=== PATIENT | male | born 1955 | race Caucasian/White ===

== ENCOUNTER 2021-06-22 10:49 | Inpatient (IN) ==
[2021-06-22] MEDS ORDERED: MIDAZOLAM HCL 5 MG/ML 1 ML VIAL ONE (11:40)
[2021-06-22] MEDS ORDERED: fentaNYL citrate 100 MCG/2 ML VIAL ONE (11:40)
--- NOTE | 2021-06-22 11:53 | History & Physical Bridge Note ---
Date of Service June 22, 2021 History & Physical Bridge Note I have examined the patient, reviewed the History & Physical and in the interval since the performance of the History & Physical I have noted the following changes of clinical significance: no changes noted
--- NOTE | 2021-06-22 11:54 | Pre Anesthesia Assessment ---
Date of Service June 22, 2021 Pre Sedation Assessment Vital Signs Temp Pulse Pulse Resp BP Pulse Ox 06/22/21 11:30 83 18 119/88 97 06/22/21 11:11 36.8 C 88 18 110/86 96 Pre-Sedation Airway Assessment Smoking Status: Current every day smoker Hx Sleep Apnea: No Short, Thick Neck: No Thyromental Distance: < 3.5 Finger Breadths Oral Cavity: + Dentures Mallampati Class: II ASA: ASA3 NPO Status Date of Last Intake of Fluids: 06/21/21 Time of Last Intake of Fluids: 21:30 Date of Last Intake of Solid Food: 06/21/21 Time of Last Intake of Solid Foods: 17:45 Notes The planned sedation has been discussed with the patient. Informed Consent was obtained. I have identified the patient, determined the appropriateness of sedation and have assessed the patient immediately prior to the procedure. All medicine(s) and interventions are by my order.
--- NOTE | 2021-06-22 12:19 | Post Anesthesia Assessment ---
Date of Service June 22, 2021 Post Sedation Assessment Vital Signs Temp Pulse Pulse Resp BP Pulse Ox 06/22/21 12:13 92 H 20 105/79 99 06/22/21 12:08 111 H 22 129/94 93 06/22/21 12:05 84 16 110/72 100 06/22/21 12:00 85 16 92/75 L 100 06/22/21 11:55 85 16 92/75 L 100 06/22/21 11:50 83 18 107/81 100 06/22/21 11:30 83 18 119/88 97 06/22/21 11:11 36.8 C 88 18 110/86 96 Recovery Score Activity: Moves 4 extremities Respiration: Deep Breath/Cough Circulation: +/-20% PreAnes Value Consciousness: Arouseable (by name) Oxygen Saturation: O2 needed for >90% Post Anesthesia Score: 8 Discharge Sedation Level of Care: Fast Track Phase II Post Sedation Plan On clinical assessment, the patient appears to have tolerated the sedation without complications. Patient is recovering as anticipated. Patient will continue to be monitored by nursing and may be discharged when sedation discharge criteria are met per below protocol. Upon Completions of procedure up to 15 minutes continue every 5 minute vital signs and the P.A.R. score; then discharge to a Phase I or Fast Track to Phase II per the following guidelines: * Discharge Patient to appropriate Phase II area if PAR is 8 or greater or return to pre- procedure baseline. The post - procedure orders will be as directed. * If PAR score is less than 8 or not return to pre-procedure baseline then patient will follow Phase I monitoring till PAR is reached for Phase II. The Phase I may be done in procedure room or may call to secure a Phase I area. * If naloxone or flumazenil are used for reversal, hold in Phase I for continued monitoring from when last reversal dose was given for a minimum of 60 minutes or longer pending the nurse and/or physician discretion of patient condition before discharge to Phase II. Please call the Sedation Physician to re-evaluate and complete post-note for discharge to Phase II area. Do NOT discharge from procedure sedation or Phase 1 until post- sedation evaluation note is complete by procedure /sedation MD Sedation Discharge Instructions to be given to the patient at discharge to home.
--- NOTE | 2021-06-22 13:24 | Procedure Note ---
Procedure Note Date of Service June 22, 2021 Note Procedure: Fiberoptic bronchoscopy Conscious sedation Provider: dAin Garcia MD Consent: Signed by patient and timeout verified prior to procedure. Sedation start: 1153 Sedation end: 64146 Conscious sedation: 3 mg Versed, 100 mcg fentanyl, topical lidocaine per RT protocol Procedure: Patient was brought to the bronchoscopy suite. Consent was verified. Appropriate radiographic studies had been reviewed prior to the procedure. Standard monitoring was applied. Oxygen was administered. After topical anesthesia of the airways per respiratory therapy protocol, the fiberoptic scope was advanced through the right nares. Nasopharynx and oropharynx was unremarkable. At the level of the epiglottis, there was a polypoid friable mass which obscured most of the normal anatomy. I was able to find a small lumen to navigate the bronchoscope through the lumen. We were able to visualize vocal cords on the distal aspect of the mass. The scope was passed through the vocal cords. The trachea was midline. Main ran was sharp. There were no abnormalities within the trachea to correspond to the abnormalities identified on CT scan and this likely represented adherent mucus. Anesthesia of the lower airways was achieved with instillation of lidocaine through the scope. A sequential and systematic examination of the lower airways was conducted. The right-sided airways were normal in anatomic configuration and patent and the mucosa appeared normal. Left-sided airways were normal in anatomic configuration and widely patentand the mucosa appeared normal. The bronchoscope was then removed from the airways. The patient tolerated the procedure well without obvious complication. Patient was returned to the recovery room. Impression: 1. 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 See p rhea in EMR 2. No evidence of tracheal abnormality. The described radiographic abnormalities on CT scan likely represented mucus adherent to the tracheal granda The images were reviewed with Dr. Houston (ENT) and Dr. Chester (Anesthesia). It was recommended that the patient have his airway secured with a tracheostomy. He is being put on the OR schedule for later today. This was discussed with the patient. We will have medicine admit the patient. He will likely require medical oncology and or radiation oncology depending on pathological findings. Coding CPT Codes Sedation/Anesthesia - Sedation/Anesthesia: 39452 Mod Sedation by the same physician;Init15 Min Child Age 5 & Up ([id number]) Sedation/Anesthesia - Sedation/Anesthesia: 16493 Mod Sedation by the same physician; Ea [id number] Minutes ([id number]) Pulmonary/Thoracic - Pulmonary and Thoracic: 02850 Dx bronchoscopy/wash ([id number]) [facility] [place] Procedure Codes (Charges) Pulmonary/Thoracic Procedure 1: Pulmonary and Thoracic: 98758 Dx bronchoscopy/wash Sedation/Anesthesia Procedure 2: Sedation/Anesthesia: 51467 Mod Sedation by the same physician;Init15 Min Child Age 5 & Up Total Sedation Time (minutes): 23 Procedure 3: Sedation/Anesthesia: 25573 Mod Sedation by the same physician; Ea [id number] Minutes Total Sedation Time (minutes): 23
--- NOTE | 2021-06-22 13:24 | History & Physical Report ---
Date of Service June 22, 2021 Assessment & Plan (1) Tracheal mass: Plan: Due to the noted tracheal mass the pulmonary service feels the patient requires admission to the hospital due to concern for airway compromise. We will proceed as follows: Pulmonary service feels an urgent tracheostomy is required. This procedure is planned for later today We will follow for results of pathology from today's bronchoscopy. Additional recommendations be forthcoming and will be based on pathology results as well as patient's postoperative course following his tracheostomy. History of Present Illness Chief Complaint: Tracheal mass Primary Care Provider: Blanca Pabon, DO This 65-year-old male who underwent a bronchoscopy today by the pulmonary service. The patient was found to have a tracheal mass. Due to location of the patient's trachea masses felt the patient will warrant an urgent tracheostomy and subsequent admission to the hospital and we are asked to participate in his care for this reason. I visited with the patient following his bronchoscopy. The patient notes that back in November 2020 he developed hoarseness. In addition the patient developed a DVT. Patient has been placed on blood thinners and he has undergone a series of the diagnostic evaluations secondary to his hoarseness. With his current presentation the patient says that he does not note any worsening shortness of breath even with activity. He notes that he has been able to maintain his usual level of activity performing various tasks around his house and yard work. He denies any chest pain. He denies any fevers, shakes, chills. He denies any known exposures to any chemicals, pesticides, or asbestos. Patient does report an extensive history of smoking having smoked for in excess of 30 years up to 1.5 to 2 pack cigarettes per day. He is a current smoker. Patient says that he consumes approximately 1 alcoholic beverage per day but is not a heavy drinker and has not been a heavy drinker in the past. In addition the patient does report losing between 50 and 60 pounds unintentionally over the past year. He denies any dysphagia. He denies any decreased appetite. Since the patient's hoarseness began he has seen his family physician. He has been anticoagulated secondary to his history of DVT. Patient has undergone a colonoscopy in February of this year at which time polyps were removed. There is no available pathology from this procedure.Patient has undergone a CT scan of the chest on November 5 of this year. This showed several small pulmonary nodules not exceeding 3 mm in size. Patient was noted to have some right lobe thyroid enlargement. There were questionable 6 mm nodules along the right lat eral wall of the trachea. It is a CT scan that prompted pulmonary evaluation. Was initially felt that the thyroid lesions in question represented mucus which would be better evaluated by bronchoscopy which he underwent today. In addition to the above-noted studies the patient is also undergone a thyroid ultrasound on May 26 of this year which showed an enlarged multinodular goiter in both lobes of the thyroid. At the present time the patient says he is not short of breath. He denies any chest pain. He denies any fevers, shakes, chills. He denies any nausea or vomiting. He does report that he continues to have a hoarse voice but otherwise feels okay. At the time of my interview he was resting comfortably in bed. He was in no distress. Allergies Allergy/AdvReac Type Severity Reaction Status Date / Time No Known Drug Allergies Allergy Verified 06/14/21 08:32 Home Medications Medication Instructions Recorded Confirmed Type hydrocortisone 2.5 % topical cream 1 applic KS DAILY PRN #30 g 02/15/21 06/22/21 Rx with perineal applicator apixaban 5 mg tablet (Eliquis) 5 mg PO BID #180 tab 03/18/21 06/22/21 Rx atorvastatin 20 mg tablet (Lipitor) 20 mg PO QPM #90 tab 04/28/21 06/22/21 Rx ipratropium 20 mcg-albuterol 100 1 puff INHALATION Q4H PRN #4 g 06/14/21 06/22/21 Rx mcg/actuation mist for inhalation (Combivent Respimat) Past Med/Surg History Medical History Emphysema/COPD History of DVT (deep vein thrombosis) RLE; November 2020; unk etiology; on eliquis HLD (hyperlipidemia) IBS (irritable bowel syndrome) Osteoarthritis Smoker Tracheal mass Unintentional weight loss reports 40 lb wt loss over 7 mo Surgical History History of ankle surgery (12/2019) Left, d/t fx History of colonoscopy History of esophagogastroduodenoscopy (EGD) S/P tonsillectomy Family History Aunt Myocardial infarction Uncle Myocardial infarction Father Alcohol abuse Mother , complications No problems noted. Other Diabetes No family history of adverse response to anesthesia Denies family history of Ovarian cancer Prostate cancer Breast cancer Colorectal cancer Social History Smoking Status: Current every day smoker Tobacco Type: Cigarettes Age Started Using Tobacco: 21; packs per day: 1; Years Smoked: 40; Cigarettes Per Day: 1 ppd; Second Hand Exposure: No; Hx Alcohol Use: Yes Alcohol type: hard liquor Alcohol Intake Frequency: 2-3 x/Week Alcohol Intake Frequency Comment: weekends Hx Substance Use: No Preferred Language: [place] Communication Ability: Effective Visual Impairment: No Limitations Hearing Ability: Normal Ic Design Engineer Required: No Beliefs That Will Affect Care: None marital status: marital status details: x 2 Current Living Situation: Alone Current Living Situation Comment: lives w/ dog current occupational status: employed current occupation: [employer] How many Children do You have: 2 Feels Safe at Home: Yes Childhood Exposure to Second-Hand Smoke: No caffeine: Yes (coffee) during the past year weight has: remained stable Dental Care, Regularly: No Physical Activity Frequency: Does not Exercise Seatbelt Use: always Sunscreen Use: No Assistive Devices: Denture - Upper, Denture - Lower and Glasses Review of Systems Constitutional: as per Subjective / HPI and + weight loss; no fever, no chills and no fatigue Eyes: no diplopia Ear, Nose, Mouth, Throat: + hoarseness; no ear pain, no tinnitus and no dysphagia Respiratory: no cough and no dyspnea Cardiovascular: no chest pain Gastrointestinal: no abdominal pain, no nausea, no vomiting and no change in bowel habits Genitourinary: no dysuria Musculoskeletal: no back pain Integumentary: no rash Neurologic: no localized weakness Physical Exam Constitutional: well developed and well nourished; no acute distress Eyes: no conjunctival abnormality ENMT: Ears: no hearing impairment and no external ear abnormality Audible hoarseness noted with phonation Neck: trachea midline Respiratory: normal respiratory effort, lungs clear to auscultation No stridor noted Cardiovascular: Rate/Rhythm: regular rate and regular rhythm Gastrointestinal (Abdomen): Soft and nontender Musculoskeletal: No calf tenderness Skin: no rashes, warm and dry Neurologic: moves all extremities Psychiatric: A+Ox3, euthymic affect Results & Data Results & Data ([facility]) Vital Signs (Past 12 Hours) Vital Signs Temp Pulse Pulse Resp BP Pulse Ox 06/22/21 13:00 36.7 C 87 18 136/95 99 06/22/21 12:45 36.8 C 90 18 97/79 L 98 06/22/21 12:30 36.8 C 90 18 117/78 98 06/22/21 12:15 36.8 C 90 18 108/88 99 06/22/21 12:13 92 H 20 105/79 99 06/22/21 12:08 111 H 22 129/94 93 06/22/21 12:05 84 16 110/72 100 06/22/21 12:00 85 16 92/75 L 100 06/22/21 11:55 85 16 92/75 L 100 06/22/21 11:50 83 18 107/81 100 06/22/21 11:30 83 18 119/88 97 06/22/21 11:11 36.8 C 88 18 110/86 96 Supervising Physician Co-Signing Physician Notes I personally saw and examined the patient. I verified all duran points and agree with Fer Elias PA-C with the following exceptions and/or additions: 65 year old male admission s/p bronchoscopy due to need for emergency tracheostomy due to large supraglottic mass. Patient denies any prior CVA or OR. He usually has good exercise tolerance and reports walking a mild without any shortness of breath or chest pain O/E No stridor, HS 1+2, no murmurs, Chest CTAB, Abdo SNT A/P Supraglottic mass - Patient will be admitted to the ICU post surgery. Consult ICU and ENT. Prior unprovoked DVT - suspect related to current finding of supraglottic mass. Currently will hold anticoagulation due to need for emergency tracheostomy PG Care Time/CCT Total # of Minutes Spent Total Time Spent with Patient: Total time spent is greater than 50% in coordination of care (as documented) at patient's floor/unit and/or counseling patient: Coding Level of Care Code 35861 Initial Inpt Care Lvl 3 Diagnoses Tracheal mass J39.8
[2021-06-22] MEDS ORDERED: LIDOCAINE 2% LOCAL 50 ML VIAL ONE (13:55)
[2021-06-22] MEDS ORDERED: LIDOCAINE 2%/EPINEPHRINE 1:100,000 20ML ONE ×2 (13:55→15:37)
--- NOTE | 2021-06-22 14:12 | Critical Care Consultation ---
Date of Consultation June 22, 2021 Assessment & Plan (1) Supraglottic mass: (2) Pulmonary nodule: (3) Smoker: (4) Unintentional weight loss: Impression: 65-year-old male with progressive history of hoarseness, unprovoked DVT, and weight loss. He underwent bronchoscopy today for evaluation of questionable tracheal lesions. There were no lesions in the trachea however a supraglottic mass was identified with significant airway compromise with findings highly concerning for malignancy Recommendations: 1. Supraglottic mass: Case was discussed and images were reviewed with Dr. HOUSTON from ENT. He recommended securing the patient's airway sooner rather than later and is coming to the hospital to perform tracheostomy. Case was reviewed and images reviewed with Dr. Donald from anesthesia as well. They are contemplating tracheostomy under local anesthesia. I did advise them that I was able to enter the airway although it was somewhat tortuous. He was able to lie supine. He did tolerate sedation in the form of 3 mg Versed and 100 mcg fentanyl for the procedure. Otolaryngology will also perform biopsies of the supraglottic lesion at that point time. Its likely the patient will require medical oncology and radiation oncology outpatient follow-up. Additional staging procedures may be required. He will be observed post trach in the hospital but anticipate that he should do well. Will need case management and potential home health set up for trach management. Unclear what additional staging procedures might need to be conducted for this patient. 2. Unprovoked DVT: The patient is currently off his Eliquis. Would hold anticoagulation based on his need for additional surgical procedures. This can be restarted once felt to be stable from a surgical standpoint. 3. Tobacco abuse: Smoking cessation was recommended. 4. Anticipate the patient may not require prolonged hospitalization and probably will not require prolonged ICU level care. 5. Pulmonary nodules: These are too small to biopsy or to differentiate on any additional scanning. Radiographic surveillance with a follow-up CT scan recommended in 12 months. Additional management issues per the admitting hospitalist. Will sign off once the patient no longer requires ICU level care History of Present Illness Attending Physician: Adin Garcia MD History of Present Illness Asked by hospitalist to evaluate this patient with supraglottic mass and near airway obstruction. Patient is known to me from pulmonary clinic. Please see my outpatient pulmonary notes and bronchoscopy note for today. This 65-year-old male was referred to me in the pulmonary clinic last month. He has a history of tobacco abuse and developed an unprovoked DVT. Hypercoagulable work-up was negative. Lung cancer screening was recommended which was performed and demonstrated several small less than 4 mm pulmonary nodules. There were some small densities within the trachea, likely adherent mucus but this prompted a pulmonary evaluation. Options were discussed with the patient to include serial observation versus bronchoscopy. The patient elected to pursue bronchoscopy. He was seen today in the outpatient setting for elective fiberoptic bronchoscopy to evaluate this tracheal nodules. The patient does complain of unintentional weight loss. He is also had hoarseness which has been progressive over the last 6 months. He is not had any swallowing difficulties or aspiration events. No fevers chills night sweats or other constitutional symptoms. Allergies Allergy/AdvReac Type Severity Reaction Status Date / Time No Known Drug Allergies Allergy Verified 06/14/21 08:32 Home Medications Medication Instructions Recorded Confirmed Type hydrocortisone 2.5 % topical cream [address] DAILY PRN #30 g 02/15/21 06/22/21 Rx with perineal applicator apixaban 5 mg tablet (Eliquis) 5 mg PO BID #180 tab 03/18/21 06/22/21 Rx atorvastatin 20 mg tablet (Lipitor) 20 mg PO QPM #90 tab 04/28/21 06/22/21 Rx ipratropium 20 mcg-albuterol 100 1 puff INHALATION Q4H PRN #4 g 06/14/21 06/22/21 Rx mcg/actuation mist for inhalation (Combivent Respimat) Patient History Medical History (Updated 06/22/21 @ 14:07 by Adin Garcia MD) Emphysema/COPD History of DVT (deep vein thrombosis) RLE; November 2020; unk etiology; on eliquis HLD (hyperlipidemia) IBS (irritable bowel syndrome) Osteoarthritis Smoker Tracheal mass Unintentional weight loss reports 40 lb wt loss over 7 mo Surgical History History of ankle surgery (12/2019) Left, d/t fx History of colonoscopy History of esophagogastroduodenoscopy (EGD) S/P tonsillectomy Family History Aunt Myocardial infarction Uncle Myocardial infarction Father Alcohol abuse Mother , complications No problems noted. Other Diabetes No family history of adverse response to anesthesia Denies family history of Ovarian cancer Prostate cancer Breast cancer Colorectal cancer Social History Smoking Status: Current every day smoker Tobacco Type: Cigarettes Age Started Using Tobacco: 21; packs per day: 1; Years Smoked: 40; Cigarettes Per Day: 1 ppd; Second Hand Exposure: No; Hx Alcohol Use: Yes Alcohol type: hard liquor Alcohol Intake Frequency: 2-3 x/Week Alcohol Intake Frequency Comment: weekends Hx Substance Use: No Preferred Language: Norwegian Communication Ability: Effective Visual Impairment: No Limitations Hearing Ability: Normal [employer] 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 Beliefs That Will Affect Care: None marital status: marital status details: x 2 Current Living Situation: Alone Current Living Situation Comment: lives w/ dog current occupational status: employed current occupation: [employer] How many Children do You have: 2 Feels Safe at Home: Yes Childhood Exposure to Second-Hand Smoke: No caffeine: Yes (coffee) during the past year weight has: remained stable Dental Care, Regularly: No Physical Activity Frequency: Does not Exercise Seatbelt Use: always Sunscreen Use: No Assistive Devices: Denture - Upper and Denture - Lower Review of Systems Review of Systems: All systems reviewed & are unremarkable except as noted in HPI & below Physical Exam Constitutional: WD/WN, vitals as above ENMT: Patient is hoarse. Neck: trachea midline, no thyromegaly Respiratory: normal respiratory effort, lungs clear to auscultation Cardiovascular: RRR, no murmur, no edema Gastrointestinal (Abdomen): normal bowel sounds, soft, nontender, no hepatosplenomegaly Musculoskeletal: Extremities: extremities normal to inspection Skin: no rashes, warm and dry Neurologic: Nonfocal exam Lymphatic: no cervical lymphadenopathy Results & Data Results & Data ([facility]) Vital Signs (Past 12 Hours) Vital Signs Temp Pulse Pulse Resp BP Pulse Ox 06/22/21 13:45 36.7 C 91 H 20 123/84 97 06/22/21 13:30 36.7 C 92 H 20 115/75 98 06/22/21 13:00 36.7 C 87 18 136/95 99 06/22/21 12:45 36.8 C 90 18 97/79 L 98 06/22/21 12:30 36.8 C 90 18 117/78 98 06/22/21 12:15 36.8 C 90 18 108/88 99 06/22/21 12:13 92 H 20 105/79 99 06/22/21 12:08 111 H 22 129/94 93 06/22/21 12:05 84 16 110/72 100 06/22/21 12:00 85 16 92/75 L 100 06/22/21 11:55 85 16 92/75 L 100 06/22/21 11:50 83 18 107/81 100 06/22/21 11:30 83 18 119/88 97 06/22/21 11:11 36.8 C 88 18 110/86 96 Critical Care Results & Data Vital Signs (Past 12 Hours) Vital Signs Temp Pulse Pulse Resp BP Pulse Ox 06/22/21 13:45 36.7 C 91 H 20 123/84 97 06/22/21 13:30 36.7 C 92 H 20 115/75 98 06/22/21 13:00 36.7 C 87 18 136/95 99 06/22/21 12:45 36.8 C 90 18 97/79 L 98 06/22/21 12:30 36.8 C 90 18 117/78 98 06/22/21 12:15 36.8 C 90 18 108/88 99 06/22/21 12:13 92 H 20 105/79 99 06/22/21 12:08 111 H 22 129/94 93 06/22/21 12:05 84 16 110/72 100 06/22/21 12:00 85 16 92/75 L 100 06/22/21 11:55 85 16 92/75 L 100 06/22/21 11:50 83 18 107/81 100 06/22/21 11:30 83 18 119/88 97 06/22/21 11:11 36.8 C 88 18 110/86 96 Lab & Micro Results (Past 24 Hours) No Data to Display No Data to Display No Data to Display Diagnostic Findings (Past 24 Hours) Bronchoscopy procedure note from today: Procedure: Fiberoptic bronchoscopy Conscious sedation Provider: Adin Garcia MD Consent: Signed by patient and timeout verified prior to procedure. Sedation start: 1153 Sedation end: 72556 Conscious sedation: 3 mg Versed, 100 mcg fentanyl, topical lidocaine per RT protocol Procedure: Patient was brought to the bronchoscopy suite. Consent was verified. Appropriate radiographic studies had been reviewed prior to the procedure. Standard monitoring was applied. Oxygen was administered. After topical anesthesia of the airways per respiratory therapy protocol, the fiberoptic scope was advanced through the right nares. Nasopharynx and oropharynx was unremarkable. At the level of the epiglottis, there was a polypoid friable mass which obscured most of the normal anatomy. I was able to find a small lumen to navigate the bronchoscope through the lumen. We were able to visualize vocal cords on the distal aspect of the mass. The scope was passed through the vocal cords. The trachea was midline. Main ran was sharp. There were no abnormalities within the trachea to correspond to the abnormalities identified on CT scan and this likely represented adherent mucus. Anesthesia of the lower airways was achieved with instillation of lidocaine through the scope. A sequential and systematic examination of the lower airways was conducted. The right-sided airways were normal in anatomic configuration and patent and the mucosa appeared normal. Left-sided airways were normal in anatomic configuration and widely patentand the mucosa appeared normal. The bronchoscope was then removed from the airways. The patient tolerated the procedure well without obvious complication. Patient was returned to the recovery room. Impression: 1. 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 See photos in EMR 2. No evidence of tracheal abnormality. The described radiographic abnormalities on CT scan likely represented mucus adherent to the tracheal granda The images were reviewed with Dr. Houston (ENT) and Dr. Chester (Anesthesia). It was recommended that the patient have his airway secured with a tracheostomy. He is being put on the OR schedule for later today. This was discussed with the patient. We will have medicine admit the patient. He will likely require medical oncology and or radiation oncology depending on pathological findings. RT Ventilator Mngmt (Last Documented) Ventilator Ordered Settings Respiratory Rate 20 06/22/21 13:45 Ventilator - PT Measurements Respiratory Rate 20 Coding Level of Care Code 90897 Inpt Consult Level 5 Diagnoses Supraglottic mass J38.7 Pulmonary nodule R91.1 Smoker F17.200 Unintentional weight loss R63.4
--- NOTE | 2021-06-22 14:15 | XRay Report ---
XR chest 1V portable CLINICAL HISTORY: pre-op. Evaluate cardiopulmonary status COMPARISON STUDY: No previous studies for comparison. TECHNIQUE: 1 view of the chest FINDINGS: Single frontal view of the chest demonstrates the cardiomediastinal silhouette to be within normal li mits. There is a decreased inspiratory effort with elevation of the hemidiaphragms and crowding of th e bronchovascular markings at the lung bases and centrally. The lungs are clear of alveolar opacities . There is no evidence for pleural effusion. There is no evidence for vascular congestion. There is n o acute osseous pathology. IMPRESSION: There is a decreased inspiratory effort with otherwise no acute chest disease. ACT 112: Negative or not required by law. Electronically signed by: Shilo Delaney M.D. 06/22/2021 2:13 PM
[2021-06-22 14:37] LABS: Basophils # (auto) 0.05 K/uL (0-0.2); Basophils % (auto) 0.5 %; Eosinophils # (auto) 0.22 K/uL (0-0.5); Eosinophils % (auto) 2.3 %; Hematocrit (blood only) 40.7 % (42-52); Hemoglobin 13.4 g/dL (14.0-18.0); Immature Granulocytes # (auto) 0.02 K/uL (0.00-0.02); Immature Granulocytes % (auto) 0.2 %; Lymphocytes # (auto) 0.94 K/uL (1.2-3.4); Lymphocytes % (auto) 9.8 %; Mean Corpuscular Hemoglobin 29.8 pg (25-34); Mean Corpuscular Volume 90.6 fL (80-100); Mean Platelet Volume 9.1 fL (7.4-10.4); Monocytes # (auto) 0.89 K/uL (0.11-0.59); Monocytes % (auto) 9.2 %; Neutrophils # (auto) 7.52 K/uL (1.4-6.5); Platelet Count 259 K/uL (130-400); RDW Coefficient of Variation 13.9 % (11.5-14.5); RDW Standard Deviation 45.7 fL (36.4-46.3); Red Blood Count 4.49 M/uL (4.7-6.1); White Blood Count 9.64 K/uL (4.8-10.8)
[2021-06-22 14:39] LABS: Mean Corpuscular Hgb Conc 32.9 g/dL (32-36)
[2021-06-22 14:53] LABS: BUN Creatinine Ratio 18.3 (10-20); Calcium 9.3 mg/dl (8.5-10.1); Creatinine Clr Calc Pharmacy 107.8 ml/min; Est GFR (African American) 111.7 ml/min; Est GFR (Non-African American) 96.4 ml/min
[2021-06-22] MEDS ORDERED: DexMEDEtomidine HCL IV 100 MCG/ML VIAL ONE (14:54)
[2021-06-22 14:56] LABS: Albumin Globulin Ratio 0.7 (0.9-2); Bilirubin,Total 0.5 mg/dl (0.2-1); Globulin 4.1 gm/dl (2.5-4.0); Total Protein 7.1 gm/dl (6.4-8.2)
[2021-06-22] MEDS ORDERED: PROPOFOL IV EMULSION 10 MG/ML 20 ML VIAL IV ONE (14:57)
[2021-06-22] MEDS ORDERED: MIDAZOLAM HCL 1 MG/ML 2ML VIAL ONE (14:57)
[2021-06-22] MEDS ORDERED: LIDOCAINE 2% 2 ML VIAL/AMP(20MG/ML) INFIL ONE (14:57)
[2021-06-22 15:00] LABS: Partial Thromboplastin Ratio 0.9; Partial Thromboplastin Time 24.9 Seconds (21.0-31.0); Prothrombin Time 10.4 Seconds (9.0-12.0)
[2021-06-22] MEDS ORDERED: ceFAZolin 2000MG 2,000 MG/15 ML SYR IV ONE (15:03)
[2021-06-22] MEDS ORDERED: ALBUT/IPRATROP 3MG/0.5MG NEB 3 ML VIAL ONE (15:04)
[2021-06-22] MEDS ORDERED: ceFAZolin 2,000 MG/15 ML IV PUSH IV ONE (15:06)
--- NOTE | 2021-06-22 15:07 | ENT Consultation ---
Date of Consultation June 22, 2021 Assessment & Plan (1) Malignant tumor of suprahyoid epiglottis: Emergency tracheostomy under local followed by panendoscopy and biopsies. History of Present Illness Reason for Consultation: Hoarseness. Attending Physician: Adin Garcia MD History of Present Illness This 65-year-old gentleman was evaluated at the [facility] for hoarseness since November. He was also found to have a thyroid nodule and was being evaluated for that. He had bronchoscopy today which revealed a large epiglottic tumor. He is here for establishment of airway. Allergies Allergy/AdvReac Type Severity Reaction Status Date / Time No Known Drug Allergies Allergy Verified 06/14/21 08:32 Home Medications Medication Instructions Recorded Confirmed Type hydrocortisone 2.5 % topical cream 1 applic [place] DAILY PRN #30 g 02/15/21 06/22/21 Rx with perineal applicator apixaban 5 mg tablet (Eliquis) 5 mg PO BID #180 tab 03/18/21 06/22/21 Rx atorvastatin 20 mg tablet (Lipitor) 20 mg PO QPM #90 tab 04/28/21 06/22/21 Rx ipratropium 20 mcg-albuterol 100 1 puff INHALATION Q4H PRN #4 g 06/14/21 06/22/21 Rx mcg/actuation mist for inhalation (Combivent Respimat) Patient History Medical History Emphysema/COPD History of DVT (deep vein thrombosis) RLE; November 2020; unk etiology; on eliquis HLD (hyperlipidemia) IBS (irritable bowel syndrome) Osteoarthritis Smoker Tracheal mass Unintentional weight loss reports 40 lb wt loss over 7 mo Surgical History History of ankle surgery (12/2019) Left, d/t fx History of colonoscopy History of esophagogastroduodenoscopy (EGD) S/P tonsillectomy Family History Aunt Myocardial infarction Uncle Myocardial infarction Father Alcohol abuse Mother , complications No problems noted. Other Diabetes No family history of adverse response to anesthesia Denies family history of Ovarian cancer Prostate cancer Breast cancer Colorectal cancer Social History Smoking Status: Current every day smoker Tobacco Type: Cigarettes Age Started Using Tobacco: 21; packs per day: 1; Years Smoked: 40; Cigarettes Per Day: 1 ppd; Second Hand Exposure: No; Hx Alcohol Use: Yes Alcohol type: hard liquor Alcohol Intake Frequency: 2-3 x/Week Alcohol Intake Frequency Comment: weekends Hx Substance Use: No Preferred Language: Luxembourgish Communication Ability: Effective Visual Impairment: No Limitations Hearing Ability: Normal 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 Beliefs That Will Affect Care: None marital status: marital status details: x 2 Current Living Situation: Alone Current Living Situation Comment: lives w/ dog current occupational status: employed current occupation: [employer] How many Children do You have: 2 Feels Safe at Home: Yes Childhood Exposure to Second-Hand Smoke: No caffeine: Yes (coffee) during the past year weight has: remained stable Dental Care, Regularly: No Physical Activity Frequency: Does not Exercise Seatbelt Use: always Sunscreen Use: No Assistive Devices: Denture - Upper and Denture - Lower Physical Exam Constitutional: WD/WN, vitals as above Eyes: PERRL, conjunctivae normal, anicteric sclerae ENMT: external ear and nose normal, oropharynx normal Neck: Palpable thyroid right greater than left lobe Respiratory: normal respiratory effort, lungs clear to auscultation Cardiovascular: RRR, no murmur, no edema Results & Data ([facility]) Vital Signs (Past 12 Hours) Vital Signs Temp Pulse Pulse Resp BP Pulse Ox 06/22/21 14:32 36.7 C 81 20 130/90 98 06/22/21 13:45 36.7 C 91 H 20 123/84 97 06/22/21 13:30 36.7 C 92 H 20 115/75 98 06/22/21 13:00 36.7 C 87 18 136/95 99 06/22/21 12:45 36.8 C 90 18 97/79 L 98 06/22/21 12:30 36.8 C 90 18 117/78 98 06/22/21 12:15 36.8 C 90 18 108/88 99 06/22/21 12:13 92 H 20 105/79 99 06/22/21 12:08 111 H 22 129/94 93 06/22/21 12:05 84 16 110/72 100 06/22/21 12:00 85 16 92/75 L 100 06/22/21 11:55 85 16 92/75 L 100 06/22/21 11:50 83 18 107/81 100 06/22/21 11:30 83 18 119/88 97 06/22/21 11:11 36.8 C 88 18 110/86 96
--- NOTE | 2021-06-22 15:10 | Anesthesiology Consultation ---
Date of Service June 22, 2021 Assessment & Plan (1) Encounter for pre-operative examination: Chart Review Chart Review: Acceptable Risk for Surgery and Patient NOT seen in Pre Admission Testing Consults Requested none History Surgery Operation Date: 06/22/21 09:30 Proposed Procedures p Tracheostomy - Bouchra Houston MD Operation Date: 06/22/21 11:00 Proposed Procedures p Bronchoscopy Radiology - Adin Garcia MD Height/Weight Height: 6 ft Weight: 91.1 kg Allergies Allergy/AdvReac Type Severity Reaction Status Date / Time No Known Drug Allergies Allergy Verified 06/14/21 08:32 Medications Home Medications Medication Instructions Recorded Confirmed Last Taken hydrocortisone 2.5 % topical cream 1 applic [place] DAILY PRN #30 g 02/15/21 06/22/21 Unknown with perineal applicator apixaban 5 mg tablet (Eliquis) 5 mg PO BID #180 tab 03/18/21 06/22/21 06/19/21 atorvastatin 20 mg tablet (Lipitor) 20 mg PO QPM #90 tab 04/28/21 06/22/21 Unknown ipratropium 20 mcg-albuterol 100 1 puff INHALATION Q4H PRN #4 g 06/14/21 06/22/21 Unknown mcg/actuation mist for inhalation (Combivent Respimat) NPO Date Last Intake of Fluids: 06/21/21 Time Last Intake of Fluids: 20:30 Date Last Intake of Solids: 06/21/21 Time Last Intake of Solids: 17:45 Past Medical History Medical History Emphysema/COPD History of DVT (deep vein thrombosis) RLE; November 2020; unk etiology; on eliquis HLD (hyperlipidemia) IBS (irritable bowel syndrome) Osteoarthritis Smoker Tracheal mass Unintentional weight loss reports 40 lb wt loss over 7 mo Past Family History Family History Aunt Myocardial infarction Uncle Myocardial infarction Father Alcohol abuse Mother , complications No problems noted. Other Diabetes No family history of adverse response to anesthesia Denies family history of Ovarian cancer Prostate cancer Breast cancer Colorectal cancer Past Surgical History Surgical History History of ankle surgery (12/2019) Left, d/t fx History of colonoscopy History of esophagogastroduodenoscopy (EGD) S/P tonsillectomy Social History Smoking Status: Current every day smoker tobacco type: cigarettes Smoking cigarettes per day: 1 ppd Hx Alcohol Use: Yes Alcohol type: hard liquor alcohol intake frequency: a few times a week Hx Substance Use: No substance use type: does not use Physical Exam Vital Signs Last Vital Signs Temp 36.7 C 06/22/21 14:32 Pulse 81 06/22/21 14:32 Resp 20 06/22/21 14:32 BP 130/90 06/22/21 14:32 Pulse Ox 98 06/22/21 14:32 Testing Laboratory Results 06/22/21 14:15 06/22/21 14:15 PT 10.4 Seconds (9.0-12.0) 06/22/21 14:15 INR 1.0 (0.9-1.1) 06/22/21 14:15 APTT 24.9 Seconds (21.0-31.0) 06/22/21 14:15 Electrocardiogram Date: 06/22/21 Findings: + NSR @ (90) Chest X-Ray Date: 06/22/21 XR chest 1V portable CLINICAL HISTORY: pre-op. Evaluate cardiopulmonary status COMPARISON STUDY: No previous studies for comparison. TECHNIQUE: 1 view of the chest FINDINGS: Single frontal view of the chest demonstrates the cardiomediastinal silhouette to be within normal limits. There is a decreased inspiratory effort with elevation of the hemidiaphragms and crowding of the bronchovascular markings at the lung bases and centrally. The lungs are clear of alveolar opacities. There is no evidence for pleural effusion. There is no evidence for vascular congestion. There is no acute osseous pathology. IMPRESSION: There is a decreased inspiratory effort with otherwise no acute chest disease. ACT 112: Negative or not required by law. Electronically signed by: Shilo Delaney M.D. 06/22/2021 2:13 PM Dictated:06/22/21 141 Transcribed: 06/22/21 141
[2021-06-22] MEDS ORDERED: KETAMINE 50 MG/5 ML SYRINGE ONE (15:34)
[2021-06-22] MEDS ORDERED: EPINEPHrine INJ 1 MG/ML AMP ONE (16:12)
[2021-06-22] MEDS ORDERED: EPINEPHrine HCL INJ 1 MG/ML 30ML ONE (16:13)
[2021-06-22] MEDS ORDERED: ONDANSETRON INJ 2 MG/ML 2 ML VIAL IV PRN (16:15)
[2021-06-22] MEDS ORDERED: LABETALOL HCL IV 5 MG/ML 20ML IV PRN (16:15)
[2021-06-22] MEDS ORDERED: HYDROmorphone INJ 1 MG/ML SYRINGE IV PRN (16:15)
[2021-06-22] MEDS ORDERED: PHENYLEPHRINE 100MCG/ML 5ML SYR IV PRN (16:15)
[2021-06-22] MEDS ORDERED: ePHEDrine sulfate 50 MG/ML AMP IV PRN (16:15)
[2021-06-22] MEDS ORDERED: ATROPINE SULFATE 0.1 MG/ML 10ML SYR IV PRN (16:15)
[2021-06-22] MEDS ORDERED: fentaNYL citrate 100 MCG/2 ML VIAL IV PRN (16:15)
[2021-06-22] MEDS ORDERED: MEPERIDINE HCL 25 MG/ML CARP/VIAL IV PRN (16:15)
--- NOTE | 2021-06-22 16:20 | Electrocardiogram Report ---
Test Reason : Blood Pressure : / mmHG Vent. Rate : 090 BPM Atrial Rate : 090 BPM P-R Int : 140 ms QRS Dur : 090 ms QT Int : 364 ms P-R-T Axes : 054 034 044 degrees QTc Int : 445 ms Normal sinus rhythm Normal ECG No previous ECGs available Confirmed by Yoav Daily ([id number]) on 06/22/2021 4:20:38 PM Referred By: Adin Garcia Confirmed By:Yoav Daily
[2021-06-22] MEDS ORDERED: ROCURONIUM BROMIDE 10 MG/ML 5 ML VIAL IV ONE (16:22)
[2021-06-22] MEDS ORDERED: GLYCOPYRROLATE 0.2 MG/ML VIAL ONE ×2 (16:22→16:23)
[2021-06-22] MEDS ORDERED: NEOSTIGMINE METHYLSULFATE 1 MG/ML 10ML VIAL ONE (16:23)
[2021-06-22] MEDS ORDERED: ONDANSETRON INJ 2 MG/ML 2 ML VIAL ONE (16:25)
[2021-06-22] MEDS ORDERED: ICU PROTOCOL FOR HYPERGLYCEMIA PRN (17:04)
--- NOTE | 2021-06-22 17:11 | Operative Report ---
PG Post Operative Report Pre & Post Diagnosis Operation Date: 06/22/21 09:30 Pre-Op Diagnosis: Epiglottic Tumor Post-Op Diagnosis: Epiglottic Tumor Operation Date: 06/22/21 11:00 Pre-Op Diagnosis: Abnormal CT of the lung Post-Op Diagnosis: Abnormal CT of the lung I identified the patient and participated in the time-out.: Yes Procedure Operation Date: 06/22/21 09:30 Actual Procedures p Tracheostomy, Panendoscopy and Biopsy (Not Applicable) - Bouchra Houston MD Operation Date: 06/22/21 11:00 Actual Procedures p Bronchoscopy Radiology(Bilateral) - Adin Garcia MD Surgeon Bouchra Houston MD Applications Developer Dr. Dent Estimated Blood Loss 20 Findings Consistent with Post-Op Diagnosis Extensive tumor eroding epiglottis extending to the base of tongue and arytenoids. Specimens Biopsies of left true vocal cord, right true vocal cord, left false vocal cord, right false vocal cord, epiglottis, right base of tongue, left base of tongue, right arytenoid, left arytenoid. Anesthesia Type Local Complications None Description of Procedure He was brought to the operating room, placed in the supine position with the neck hyperextended in preparation for tracheostomy. ChloraPrep was used. It was draped in the usual sterile manner. Local anesthesia was attained by injecting with 1% Xylocaine with 1-100,000 strength epinephrine. Incision was 2 cm above the sternal notch in a horizontal fashion. This was carried down through the skin and platysma layer. The subcutaneous fat was then excised using the Bovie down to the strap muscles. Cricoid trachea identified. Midline dissection was performed however the midline was deviated to the left due to the right thyroid mass of 6.2 cm. The thyroid isthmus was encountered and was divided using the hemostat and then suture-ligated with 2-0 silk suture ligature on the right side. The left side had minimal bleeding and was cauterized. This exposed the second and third tracheal rings. Stay suture was placed around the third tracheal ring. This was 2-0 Prolene. Incision was made between the second and third tracheal rings. The vertical incisions each side of the tracheal ring was made using the 15 blade and the Metzenbaum scissors reflecting the tracheal flap inferiorly that the stay suture. The trach mri assistant was used and the #8 Shiley cuffed fenestrated tracheostomy tube was placed. 4 corner stay sutures were placed. At this point general anesthesia was induced using the tracheostomy. He was paralyzed. Direct laryngoscopy was performed showing extensive tumor eroding the epiglottis extending to the base of tongue especially on the right side. The endolarynx was visualized. The vocal cords were visualized. Vocal cords appeared to be uninvolved. However the tumor extends down to the false vocal cords and eroded the arytenoids. Biopsies were taken of the left true vocal cord, right true vocal cord, left false vocal cord, right false vocal cord, epiglottis, right base of tongue, left base of tongue. And then biopsies were taken of the right arytenoid and left arytenoid. Hemostasis had to be controlled using cottonoids with topical epinephrine. He tolerated the procedure well and was taken to the intensive unit in satisfactory condition. I attest to the content of the Intraoperative Record and any orders documented therein. Any exceptions are noted below.
--- NOTE | 2021-06-22 17:43 | Anesthesiology Progress Note ---
Date of Service June 22, 2021 Anesthesia Post Procedure Vital Signs Vital Signs: Temp Pulse Pulse Resp BP BP Pulse Ox 06/22/21 17:35 36.6 C 74 12 106/65 95 06/22/21 17:25 74 13 110/72 96 06/22/21 17:15 82 78 17 126/77 126/77 98 06/22/21 17:05 36.6 C 78 16 105/73 98 06/22/21 14:32 36.7 C 81 20 130/90 98 06/22/21 13:45 36.7 C 91 H 20 123/84 97 06/22/21 13:30 36.7 C 92 H 20 115/75 98 06/22/21 13:00 36.7 C 87 18 136/95 99 06/22/21 12:45 36.8 C 90 18 97/79 L 98 06/22/21 12:30 36.8 C 90 18 117/78 98 06/22/21 12:15 36.8 C 90 18 108/88 99 06/22/21 12:13 92 H 20 105/79 99 06/22/21 12:08 111 H 22 129/94 93 06/22/21 12:05 84 16 110/72 100 06/22/21 12:00 85 16 92/75 L 100 06/22/21 11:55 85 16 92/75 L 100 06/22/21 11:50 83 18 107/81 100 06/22/21 11:30 83 18 119/88 97 06/22/21 11:11 36.8 C 88 18 110/86 96 Transfer of Care Handoff Completed per policy Notes Mental Status: alert / awake / arousable Patient Amnestic to Procedure: Yes Nausea / Vomiting: adequately controlled Pain: adequately controlled Airway Patency, RR, SpO2: stable & adequate BP & HR: stable & adequate Hydration State: stable & adequate Anesthetic Complications: no major complications apparent
[2021-06-22] MEDS ORDERED: IPRATROPIUM BROMIDE NEB SOLN 0.02% 2.5 ML VIAL INH PRN (17:58)
[2021-06-22] MEDS: NORMOSOL-R 1,000 ML IV SCH (18:26)
[2021-06-23 05:38] LABS: Basophils # (auto) 0.06 K/uL (0-0.2); Basophils % (auto) 0.7 %; Eosinophils # (auto) 0.12 K/uL (0-0.5); Eosinophils % (auto) 1.4 %; Hematocrit (blood only) 37.4 % (42-52); Immature Granulocytes # (auto) 0.01 K/uL (0.00-0.02); Immature Granulocytes % (auto) 0.1 %; Lymphocytes # (auto) 0.83 K/uL (1.2-3.4); Lymphocytes % (auto) 9.5 %; Mean Corpuscular Hemoglobin 29.5 pg (25-34); Mean Corpuscular Hgb Conc 32.1 g/dL (32-36); Mean Corpuscular Volume 91.9 fL (80-100); Mean Platelet Volume 8.9 fL (7.4-10.4); Monocytes # (auto) 0.76 K/uL (0.11-0.59); Monocytes % (auto) 8.7 %; Neutrophils # (auto) 6.98 K/uL (1.4-6.5); Neutrophils % (auto) 79.6 %; Platelet Count 237 K/uL (130-400); RDW Standard Deviation 47.3 fL (36.4-46.3); Red Blood Count 4.07 M/uL (4.7-6.1); White Blood Count 8.76 K/uL (4.8-10.8)
[2021-06-23] MEDS ORDERED: ICU ELECTROLYTE REPLACEMENT PROTOCOL SCH (06:00)
[2021-06-23 06:05] LABS: Albumin Level 2.4 gm/dl (3.4-5.0); BUN Creatinine Ratio 18.3 (10-20); Bilirubin Direct 0.2 mg/dl (0-0.2); Calcium 8.9 mg/dl (8.5-10.1); Creatinine Clr Calc Pharmacy 103.7 ml/min; Est GFR (Non-African American) 94.9 ml/min; Potassium 4.1 mmol/L (3.5-5.1)
[2021-06-23 06:07] LABS: Bilirubin,Total 0.7 mg/dl (0.2-1); Phosphorus 3.4 mg/dl (2.5-4.9); Total Protein 6.3 gm/dl (6.4-8.2)
[2021-06-23] MEDS: NORMOSOL-R 1,000 ML IV SCH (06:37)
[2021-06-23] MEDS: MAGNESIUM SULFATE / D5W 1 GM/100 ML BAG IV SCH ×2 (07:47→09:39)
[2021-06-23] MEDS ORDERED: fentaNYL citrate 100 MCG/2 ML VIAL IV PRN (08:32)
--- NOTE | 2021-06-23 08:34 | Critical Care Progress Note ---
Date of Service June 23, 2021 Assessment & Plan (1) Supraglottic mass: (2) Pulmonary nodule: (3) Smoker: (4) Unintentional weight loss: Plan: Impression: 65-year-old male with progressive history of hoarseness, unprovoked DVT, and weight loss. He underwent bronchoscopy today for evaluation of questionable tracheal lesions. There were no lesions in the trachea however a supraglottic mass was identified with significant airway compromise with findings highly concerning for malignancy Recommendations: 1. 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 Await pathology. Discussed with radiation oncology today. They will see the patient in the outpatient setting once pathology is available. Will need assistance with oncology nurse navigator to ensure medical and radiation oncology follow-ups. We will check a CT of the neck with contrast per rad onc discussion. Will need PET scan in the outpatient setting as well. 2. Unprovoked DVT: The patient is currently off his Eliquis. Would hold anticoagulation based on his need for additional surgical procedures. ENT is recommended holding anticoagulation for now. Unclear when this can be restarted. 3. Tobacco abuse: Smoking cessation was recommended. 4. Speech therapy evaluation today 5. Pulmonary nodules: These are too small to biopsy or to differentiate on any additional scanning. Radiographic surveillance with a follow-up CT scan recommended in 12 months. Discussed with hospitalist. The patient is stable to transfer out of the ICU and may be able to go home in relatively short order. We will sign off. Admission and Anticipated Discharge Date Admission Date: June 22, 2021 Subjective Patient seen and examined. EMR reviewed. The patient is recovered from his trach. He is having some slight pain at the trach site. He continues to cough up some bloody phlegm. Has been hemodynamically stable. Review of Systems Review of Systems: All systems reviewed & are unremarkable except as noted in Subjective Physical Exam Constitutional: WD/WN, vitals as above ENMT: Mallampati Class: II Neck: Trach site with some bloody secretions but overall well-seated. Respiratory: normal respiratory effort, lungs clear to auscultation Cardiovascular: RRR, no murmur, no edema Gastrointestinal (Abdomen): normal bowel sounds, soft, nontender, no hepatosplenomegaly Musculoskeletal: Extremities: extremities normal to inspection Skin: no rashes, warm and dry Lymphatic: no cervical lymphadenopathy Results & Data Results & Data ([facility]) Vital Signs (Past 12 Hours) Vital Signs Temp Pulse Resp BP Pulse Ox 06/23/21 08:00 113 H 23 125/84 94 06/23/21 07:00 37.0 C 81 15 113/73 98 06/23/21 06:00 79 13 93/66 L 97 06/23/21 05:00 75 12 101/65 97 06/23/21 04:00 37.0 C 74 16 103/74 97 06/23/21 03:00 84 16 113/74 96 06/23/21 02:00 63 14 111/68 97 06/23/21 01:00 78 14 114/72 95 06/23/21 00:00 36.8 C 116 H 17 141/97 H 93 06/22/21 23:30 79 12 129/89 100 06/22/21 23:00 77 12 107/68 96 06/22/21 22:00 83 13 107/78 97 06/22/21 21:30 77 13 109/69 96 06/22/21 21:00 77 15 106/73 96 06/22/21 20:45 76 13 105/69 96 Critical Care Results & Data Vital Signs (Past 12 Hours) Vital Signs Temp Pulse Resp BP Pulse Ox 06/23/21 08:00 113 H 23 125/84 94 06/23/21 07:00 37.0 C 81 15 113/73 98 06/23/21 06:00 79 13 93/66 L 97 06/23/21 05:00 75 12 101/65 97 06/23/21 04:00 37.0 C 74 16 103/74 97 06/23/21 03:00 84 16 113/74 96 06/23/21 02:00 63 14 111/68 97 06/23/21 01:00 78 14 114/72 95 06/23/21 00:00 36.8 C 116 H 17 141/97 H 93 06/22/21 23:30 79 12 129/89 100 06/22/21 23:00 77 12 107/68 96 06/22/21 22:00 83 13 107/78 97 06/22/21 21:30 77 13 109/69 96 06/22/21 21:00 77 15 106/73 96 06/22/21 20:45 76 13 105/69 96 Lab & Micro Results (Past 24 Hours) RBC 4.07 M/uL (4.7-6.1) L 06/23/21 WBC 8.76 K/uL (4.8-10.8) 06/23/21 Hgb 12.0 g/dL (14.0-18.0) L 06/23/21 Hct 37.4 % (42-52) L 06/23/21 MCV 91.9 fL (80-100) 06/23/21 MCH 29.5 pg (25-34) 06/23/21 MCHC 32.1 g/dL (32-36) 06/23/21 RDW Standard Deviation 47.3 fL (36.4-46.3) H 06/23/21 RDW Coefficient of Variation 14.0 % (11.5-14.5) 06/23/21 Plt Count 237 K/uL (130-400) 06/23/21 MPV 8.9 fL (7.4-10.4) 06/23/21 Neutrophils (%) (Auto) 79.6 % 06/23/21 Lymphocytes (%) (Auto) 9.5 % 06/23/21 Monocytes # (Auto) 0.76 K/uL (0.11-0.59) H 06/23/21 Eosinophils # (Auto) 0.12 K/uL (0-0.5) 06/23/21 Immature Granulocyte % (Auto) 0.1 % 06/23/21 Neutrophils # (Auto) 6.98 K/uL (1.4-6.5) H 06/23/21 Lymphocytes # (Auto) 0.83 K/uL (1.2-3.4) L 06/23/21 Monocytes # (Auto) 0.76 K/uL (0.11-0.59) H 06/23/21 Eosinophils # (Auto) 0.12 K/uL (0-0.5) 06/23/21 Basophils # (Auto) 0.06 K/uL (0-0.2) 06/23/21 Immature Granulocyte # (Auto) 0.01 K/uL (0.00-0.02) 06/23/21 Na 139 mmol/L (136-145) 06/23/21 K 4.1 mmol/L (3.5-5.1) 06/23/21 Cl 105 mmol/L (98-107) 06/23/21 CO2 31 mmol/L (21-32) 06/23/21 Anion Gap 3.0 (3-11) 06/23/21 BUN 14 mg/dl (7-18) 06/23/21 Creatinine 0.79 mg/dl (0.6-1.4) 06/23/21 Estimated GFR ( Amer) 110.0 ml/min 06/23/21 Estimated GFR (Non-Af Amer) 94.9 ml/min 06/23/21 BUN/Creatinine Ratio 18.3 (10-20) 06/23/21 Glu 99 mg/dl (70-99) 06/23/21 Ca 8.9 mg/dl (8.5-10.1) 06/23/21 Phosphorus Level 3.4 mg/dl (2.5-4.9) 06/23/21 Total Bilirubin 0.7 mg/dl (0.2-1) 06/23/21 Direct Bilirubin 0.2 mg/dl (0-0.2) 06/23/21 AST 10 U/L (15-37) L 06/23/21 ALT 13 (12-78) 06/23/21 Alkaline Phosphatase 103 U/L (45-117) 06/23/21 TP 6.3 gm/dl (6.4-8.2) L 06/23/21 Albumin 2.4 gm/dl (3.4-5.0) L 06/23/21 Globulin 4.1 gm/dl (2.5-4.0) H 06/22/21 Albumin/Globulin Ratio 0.7 (0.9-2) L 06/22/21 Mg 2.0 mg/dl (1.8-2.4) 06/23/21 05:11 06/23/21 Calcium Level 8.9 mg/dl (8.5-10.1) 06/23/21 05:11 06/23/21 Prothromb Time International Ratio 1.0 (0.9-1.1) 06/22/21 14:15 06/22/21 Diagnostic Findings (Past 24 Hours) Chest X-Ray 06/22/21 13:46 XR chest 1V portable CLINICAL HISTORY: pre-op. Evaluate cardiopulmonary status COMPARISON STUDY: No previous studies for comparison. TECHNIQUE: 1 view of the chest FINDINGS: Single frontal view of the chest demonstrates the cardiomediastinal silhouette to be within normal limits. There is a decreased inspiratory effort with elevation of the hemidiaphragms and crowding of the bronchovascular markings at the lung bases and centrally. The lungs are clear of alveolar opacities. There is no evidence for pleural effusion. There is no evidence for vascular congestion. There is no acute osseous pathology. IMPRESSION: There is a decreased inspiratory effort with otherwise no acute chest disease. ACT 112: Negative or not required by law. Electronically signed by: Shilo Delaney M.D. 06/22/2021 2:13 PM I & O Totals 24 Hours 06/22/21 06/23/21 06/24/21 06:59 06:59 06:59 Intake Total 1900 / 1900 0 / 0 Output Total 175 / 275 100 / 100 Balance 1725 / 1625 -100 / -100 Cumulative 06/14/21 14:39 thru 06/23/21 08:00 Intake Total 1900 Output Total 275 Balance 1625 RT Ventilator Mngmt (Last Documented) Ventilator Ordered Settings Respiratory Rate 23 06/23/21 08:00 Fraction of Inspired Oxygen 30 06/23/21 08:19 Ventilator - PT Measurements Respiratory Rate 23 Coding Level of Care Code 20223 Subseq Hosp Care Lvl 3 Diagnoses Supraglottic mass J38.7 Pulmonary nodule R91.1 Smoker F17.200 Unintentional weight loss R63.4 Time Spent (min) 40
[2021-06-23] MEDS: fentaNYL citrate 100 MCG/2 ML VIAL IV PRN ×2 (10:24→14:43)
[2021-06-23] MEDS ORDERED: OPTIRAY 320 100ml IV ONE (12:29)
--- NOTE | 2021-06-23 12:51 | Hospitalist Progress Note ---
Date of Service June 23, 2021 Assessment & Plan (1) Malignant tumor of suprahyoid epiglottis: Plan: 65-year-old white male with a PMHx of chronic tobacco abuse hospitalized for emergent tracheostomy Referred to pulmonology for complete work-up given vocal hoarseness and unintentional weight loss CT of the chest revealed a 6 mm nodule in the right lateral trachea prompting pulmonology referral Patient had an outpatient bronchoscopy performed yesterday that showed a very large epiglottic tumor. Given the size and the location, airway protection was a concern Patient was admitted. Seen by Dr. Houston (ENT) and underwent tracheostomy on 06/22 Patient had an uneventful perioperative course. Remained in the ICU for close monitoring- has since remained hemodynamically stable Pain seems to be adequately controlled Deemed stable for transition from the ICU by logistics team leader Spoke to ENT. Huge concern for malignancy. Pathology sent and pending Patient will need PET scan for screening and referral to radiation oncology for management Moving forward, patient will need education regarding his tracheostomy (staff and respiratory therapy to provide education) Speech therapy consulted to assess for any dysphagia. Once cleared, will initiate oral intake Consult case management to help arrange for home care (2) Status post emergency tracheotomy for assistance in breathing: Plan: See above (3) Unintentional weight loss: Plan: High suspicion for malignancy. See above (4) Pulmonary nodule: Plan: Seen by pulmonology. Recommending 12-month follow-up CT scan for surveillance (5) DVT (deep venous thrombosis): Plan: Unprovoked DVT in May Patient has been on Eliquis Has completed at least 6 months but given unprovoked course, lifelong anticoagulation therapy is recommended Uncertain if patient will require further surgical intervention (such as laryngectomy) At any rate, I am concerned that he may develop subsequent DVT or worse PE. Especially in the likely setting of malignancy I have discussed this with Dr. Hinds who is agreeable for resumption of anticoagulation therapy. Instead of Eliquis, will use Lovenox (DVT prophylactic dosing). At this point, I do not feel it is necessary for him to be on full treatment dose but at least needs something chemically for prophylaxis. In the event patient needs follow-up surgical intervention, Lovenox has a much faster washout than the DOAC's (6) Emphysema/COPD: Plan: Patient does not appear to be on any controlling medication for this Does use Combivent Respimat as needed Holding Combivent. Utilizing DuoNeb (to be given over trach site) We will arrange for nebulizer upon discharge. Would benefit from Pulmicort/Perforomist as disease modifying/controlling medications (utilizing a mask over his trach site). We will reach out to case management regarding arrangement of this (7) Smoker: Plan: He still smokes and lieu of the likelihood of malignancy He shrugs his shoulders when asked about quitting smoking as if he is not interested. Lengthy discussion with patient regarding the importance of smoking cessation Admission and Anticipated Discharge Date Admission Date: June 22, 2021 Subjective Patient seen on daily rounds today. Had an outpatient bronchoscopy yesterday for a tracheal mass that was seen on imaging. In addition, patient had unexplained weight loss over the past several months. Has a longstanding history of smoking (approximately 73-74-vdke-year). At any rate, bronchoscopy revealed large supraglottic mass. Given the location, he was admitted for emergent tracheostomy for airway protection. Tracheostomy performed yesterday by ENT. Patient tolerated the procedure well. He remains n.p.o. awaiting [facility] therapy consultation. He is able to tell me that he lives alone. His pain seems adequately controlled at the present time. Again has remained hemodynamically stable and has since been deemed stable for transition from the ICU by the logistics team leader. Review of Systems Review of Systems: All systems reviewed and are unremarkable except as noted in HPI and below Denies fevers, chills, headache, nasal congestion, cough, chest pain, shortness of breath, palpitations, orthopnea, PND, abdominal pain, nausea, vomiting, diarrhea, constipation, dysuria, hematuria, frequency, back pain, joint pain or swelling, easy bruising or bleeding, skin lesions or rashes. Physical Exam Physical Exam: General: Resting comfortably in his hospital bed. Awake. Does not appear ill or toxic NAD. HEENT: Head is AT/NC buccal mucosa is moist and pink Neck: Trach site with overlying Oxymask. Scant bloody secretions but overall seems well seated. No purulent drainage. No periwound erythema. Cardiac: RRR without M/G/R Lungs: CTA without W/R/R Abdomen: Normoactive X4. Soft and nontender in all quadrants. Extremities: No peripheral clubbing cyanosis or edema Neuro: A&O X4 cranial nerves II through XII are grossly intact no focal neuro deficits Skin: No obvious skin lesions or rashes Psych: Appropriate affect pleasant and cooperative Results & Data Results & Data ([facility]) Vital Signs (Past 12 Hours) Vital Signs Temp Pulse Resp BP Pulse Ox 06/23/21 12:00 82 13 110/75 97 06/23/21 11:00 80 7 L 96 06/23/21 10:00 86 12 121/82 96 06/23/21 09:00 94 H 17 103/85 99 06/23/21 08:00 113 H 23 125/84 94 06/23/21 07:00 37.0 C 81 15 113/73 98 06/23/21 06:00 79 13 93/66 L 97 06/23/21 05:00 75 12 101/65 97 06/23/21 04:00 37.0 C 74 16 103/74 97 06/23/21 03:00 84 16 113/74 96 06/23/21 02:00 63 14 111/68 97 06/23/21 01:00 78 14 114/72 95 Laboratory Results 06/23/21 05:11 06/23/21 05:11 PG Care Time/CCT Total # of Minutes Spent Total Time Spent with Patient: Total time spent is greater than 50% in coordination of care (as documented) at patient's floor/unit and/or counseling patient: Prolonged Care Time 45 minutes including time spent with patient in discussion with ENT Coding Level of Care Code 40770 Subseq Hosp Care Lvl 3 Diagnoses Malignant tumor of suprahyoid epiglottis C32.1 Status post emergency tracheotomy for assistance in breathing Z93.0 Unintentional weight loss R63.4 Pulmonary nodule R91.1 DVT (deep venous thrombosis) I82.409 Emphysema/COPD J43.9 Smoker F17.200
--- NOTE | 2021-06-23 13:27 | Ears,Nose,Throat Progress Note ---
Date of Service June 23, 2021 Assessment & Plan (1) Malignant tumor of suprahyoid epiglottis: Plan: pathology pending, will need chemo/XRT if positive. Admission and Anticipated Discharge Date Admission Date: June 22, 2021 Subjective stable Physical Exam Neck: trach in good position Results & Data ([facility]) Vital Signs (Past 12 Hours) Vital Signs Temp Pulse Resp BP Pulse Ox 06/23/21 12:00 82 13 110/75 97 06/23/21 11:00 80 7 L 96 06/23/21 10:00 86 12 121/82 96 06/23/21 09:00 94 H 17 103/85 99 06/23/21 08:00 113 H 23 125/84 94 06/23/21 07:00 37.0 C 81 15 113/73 98 06/23/21 06:00 79 13 93/66 L 97 06/23/21 05:00 75 12 101/65 97 06/23/21 04:00 37.0 C 74 16 103/74 97 06/23/21 03:00 84 16 113/74 96 06/23/21 02:00 63 14 111/68 97
--- NOTE | 2021-06-23 14:44 | CT Scan Report ---
CT soft tissue neck w con HISTORY: 65 years-old Male supraglottic mass, patient presents with a reported supraglottic mass. COMPARISON: Chest CT 05/20/2021, thyroid ultrasound 05/26/2021. TECHNIQUE: Multiple axial CT images of the soft tissues of the neck were obtained following the intra venous administration of 95 mL Optiray 320. A dose lowering technique was used consistent with the pr incipals of ALARA. FINDINGS: The imaged intracranial structures demonstrate no acute abnormality. There is moderate mucosal thicke josette of the ethmoid air cells. Mild polypoid mucosal thickening of the left maxillary sinus. The mast oid air cells are clear. There is no acute facial bone fracture identified. The patient is edentulous . Multilevel degenerative changes of the cervical spine with moderate disc space narrowing at C6-C7. There is developmental incomplete bony fusion involving the posterior arch of C1. Ill-defined osseous erosions are noted involving the thyroid cartilage bilaterally. The nasopharynx and oropharynx are patent. The parapharyngeal fat planes are symmetric and well-maint ained. Multinodular thyroid goiter, right greater than left. This results in mild mass effect upon th e adjacent trachea. There is an infiltrative heterogeneous soft tissue attenuating mass with ill-defi skyla margins and areas of apparent central necrosis which is noted involving the base of the tongue, l ingual tonsils, vallecula, piriform sinuses, epiglottis and aryepiglottic folds and possibly extendin g into the false vocal folds. This lesion overall measures approximately 4.2 x 3.3 x 5.1 cm and resul ts in marked narrowing of the supraglottic airway. The true vocal cords are likely spared, however, a re suboptimally visualized. The subglottic airway is unremarkable. A tracheostomy cannula is in place with mild adjacent edema and deep tissue air. Dilation of the ascending thoracic aorta is partially imaged. 9 mm left level 2 lymph node. No pathol ogically enlarged lymph nodes are identified in the neck or imaged upper chest. The previously descri bed subcentimeter nodule on the right aspect of the upper trachea is not definitively seen. No pneumo thorax. Subpleural bleb formation of the right lung apex. Mild emphysema. IMPRESSION: 1. Large infiltrative heterogeneous mass of the supraglottic airway measures over 5 cm and results in marked narrowing of the airway and may partially extend into the glottis. Primary head and neck carc inoma is the differential consideration of exclusion. 2. Mild associated osseous erosion of the thyroid cartilage. 3. Tracheostomy cannula in place. 4. Thyroid goiter. 5. No pathologically enlarged lymph nodes identified. ACT 112: Negative or not required by law. The above report was generated using voice recognition software. It may contain grammatical, syntax o r spelling errors. Dictated: 06/23/2021 1:35 PM Transcribed: 06/23/2021 2:29 PM Ashley [id number] [email or web address] Electronically signed by: Armando Lim M.D. 06/23/2021 2:43 PM
[2021-06-23] MEDS: D5W AND 1/2NSS 1,000 ML IV SCH (15:10)
[2021-06-23] MEDS: MoRPHine SULFATE 2 MG/ML CARP IV PRN ×2 (19:46→23:31)
[2021-06-24] MEDS: D5W AND 1/2NSS 1,000 ML IV SCH ×2 (00:27→10:07)
[2021-06-24 06:11] LABS: Basophils # (auto) 0.04 K/uL (0-0.2); Basophils % (auto) 0.5 %; Eosinophils # (auto) 0.18 K/uL (0-0.5); Eosinophils % (auto) 2.3 %; Hematocrit (blood only) 37.2 % (42-52); Hemoglobin 11.9 g/dL (14.0-18.0); Immature Granulocytes # (auto) 0.02 K/uL (0.00-0.02); Immature Granulocytes % (auto) 0.3 %; Mean Corpuscular Hemoglobin 29.2 pg (25-34); Mean Corpuscular Volume 91.4 fL (80-100); Monocytes # (auto) 0.71 K/uL (0.11-0.59); Monocytes % (auto) 9.1 %; Neutrophils # (auto) 6.13 K/uL (1.4-6.5); Neutrophils % (auto) 78.8 %; Platelet Count 222 K/uL (130-400); RDW Coefficient of Variation 13.9 % (11.5-14.5); RDW Standard Deviation 46.5 fL (36.4-46.3); Red Blood Count 4.07 M/uL (4.7-6.1); White Blood Count 7.78 K/uL (4.8-10.8)
[2021-06-24 06:52] LABS: Albumin Level 2.4 gm/dl (3.4-5.0); BUN Creatinine Ratio 14.5 (10-20); Bilirubin Direct 0.1 mg/dl (0-0.2); Bilirubin,Total 0.8 mg/dl (0.2-1); Calcium 8.2 mg/dl (8.5-10.1); Creatinine Clr Calc Pharmacy 132.1 ml/min; Est GFR (African American) 121.5 ml/min; Est GFR (Non-African American) 104.8 ml/min; Magnesium 1.9 mg/dl (1.8-2.4); Phosphorus 2.6 mg/dl (2.5-4.9); Potassium 3.6 mmol/L (3.5-5.1); Total Protein 6.3 gm/dl (6.4-8.2)
[2021-06-24] MEDS: MoRPHine SULFATE 2 MG/ML CARP IV PRN ×2 (09:18→15:00)
--- NOTE | 2021-06-24 13:20 | Fluoroscopy Report ---
FL video swallow CLINICAL HISTORY: Dysphagia. Evaluate for aspiration. COMPARISON STUDY: No previous studies for comparison. FLUOROSCOPY TIME: 2.1 minutes. NUMBER OF IMAGES: 9 cine fluoroscopic swallowing sequences FINDINGS: The patient was given barium of varying consistencies and observed under fluoroscopy with c oncurrent tape recording. Examination is performed in conjunction with a member of the speech patholo gy department. The patient was given the following consistencies of barium: Thin, nectar, pure, mechanical soft and solid. There was no significant laryngeal penetration or aspiration with all substances tested. There was no pooling within the vallecula. There was no pooling within the puriform sinuses. IMPRESSION: No significant laryngeal penetration or aspiration identified. Please see report from speech pathology regarding additional findings recommendations. ACT 112: Negative or not required by law. Electronically signed by: Shilo Delaney M.D. 06/24/2021 12:21 PM
[2021-06-24] MEDS ORDERED: oxyCODONE HCL SOLN 5 MG/5 ML UDC PO PRN (15:16)
--- NOTE | 2021-06-24 15:37 | Hospitalist Progress Note ---
Date of Service June 24, 2021 Assessment & Plan (1) Malignant tumor of suprahyoid epiglottis: Plan: 65-year-old white male with a PMHx of chronic tobacco abuse hospitalized for emergent tracheostomy Referred to pulmonology for complete work-up given vocal hoarseness and unintentional weight loss first noted November 2019 CT of the chest revealed a 6 mm nodule in the right lateral trachea prompting pulmonology referral Patient had an outpatient bronchoscopy [id number] that showed a very large epiglottic tumor. Given the size and the location, airway protection was a concern Patient was admitted. Seen by Dr. Houston (ENT) and underwent tracheostomy on 06/22 with tissue biopsy Patient had an uneventful perioperative course. Remained in the ICU for close monitoring- remained hemodynamically stable transitioned from ICU to step done on 06/23 Spoke to ENT. Huge concern for malignancy. Pathology sent and pending Patient will need PET scan for screening and referral to radiation/oncology for management Moving forward, patient will need education regarding his tracheostomy (staff and respiratory therapy to provide education)--> case mgmt working on this Speech therapy consulted to assess for any dysphagia given location of mass (had FEES and MBS showing no concern for aspiration and has since been started on easy to chew diet) start Roxicodone (liquid) for pain control. Lengthy discussion with patient regarding the long road ahead of him. First and foremost, he needs education/supplies regarding tracheostomy care. His inhalers have been transitioned to nebulized treatments over the trach Lengthy discussion with both patient and his sister. Plan is for sister to move from [place] to help with patient in this transition time but if he is discharged prior to her coming home (within the next week), she has made arrangements for him to stay with other family (2) Status post emergency tracheotomy for assistance in breathing: Plan: See above (3) Unintentional weight loss: Plan: See above (4) Pulmonary nodule: Plan: Seen by pulmonology. 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 Especially in the likely setting of malignancy I have discussed this with Dr. Hinds who is agreeable for resumption of anticoagulation therapy. Instead of Eliquis, transitioned to plateletpheresis region (Lovenox (DVT prophylactic dosing). At this point, I do not feel it is n ecessary for him to be on full treatment dose but at least needs something chemically for prophylaxis. In the event patient needs follow-up surgical intervention, Lovenox has a much faster washout than the DOAC's (6) Emphysema/COPD: Plan: Patient does not appear to be on any controlling medication for this Does use Combivent Respimat as needed Holding Combivent. Utilizing DuoNeb (to be given over trach site) We will arrange for nebulizer upon discharge. Would benefit from Pulmicort/Perforomist as disease modifying/controlling medications (utilizing a mask over his trach site). We will reach out to case management regarding arrangement of this (7) HLD (hyperlipidemia): Plan: On Lipitor (8) Smoker: Plan: He still smokes and lieu of the likelihood of malignancy initially, He shruged his shoulders when asked about quitting smoking as if he is not interested but today seems to be taking this more seriously Lengthy discussion with patient regarding the importance of smoking cessation Plan: I have called patient's sister (Regina) and have updated her Admission and Anticipated Discharge Date Admission Date: June 22, 2021 Subjective Patient seen on daily rounds today. Overall no significant complaints. Complaining that his neck is "sore". Was seen by speech therapy and had FEES and videofluoroscopy. Has since been started on easy to chew diet as no evidence of aspiration seen. Initial goal was to get him to select specialty as he lives alone and he has limited support; however, he was denied. I have discussed this in great detail with his sister who lives in [place] and plans on moving home to help provide additional support. In the interim, she has made a rrangements for her brother (the patient) to stay with cousins until she is able to come home. She is in the process of booking flights and should be here before the first of the year. Review of Systems Review of Systems: All systems reviewed and are unremarkable except as noted in HPI and below Denies fevers, chills, headache, nasal congestion, cough, chest pain, shortness of breath, palpitations, orthopnea, PND, abdominal pain, nausea, vomiting, diarrhea, constipation, dysuria, hematuria, frequency, back pain, joint pain or swelling, easy bruising or bleeding, skin lesions or rashes. Physical Exam Physical Exam: General: Resting comfortably in his hospital bed. Does not appear ill or toxic NAD. HEENT: Head is AT/NC buccal mucosa is moist and pink Neck: Trach site with overlying oxygen mask. Seems well seated. No bloody secretions. Does have mucus that he is able to express with coughing. Cardiac: RRR without M/G/R Lungs: CTA without W/R/R Abdomen: Normoactive X4. Soft and nontender in all quadrants. Extremities: No peripheral clubbing cyanosis or edema Neuro: A&O X4 cranial nerves II through XII are grossly intact no focal neuro deficits Skin: No obvious skin lesions or rashes Psych: Appropriate affect pleasant and cooperative Results & Data Results & Data ([facility]) Vital Signs (Past 12 Hours) Vital Signs Temp Pulse Resp BP Pulse Ox 06/24/21 11:32 36.7 C 79 20 110/73 96 06/24/21 08:48 36.7 C 112 H 20 105/69 99 06/24/21 08:00 68 16 98 06/24/21 07:00 36.6 C 68 18 115/75 99 06/24/21 05:54 36.9 C 70 18 111/73 96 06/24/21 03:25 36.5 C 72 18 100/68 97 Laboratory Results 06/24/21 05:36 06/24/21 05:36 PG Care Time/CCT Total # of Minutes Spent Total Time Spent with Patient: Total time spent is greater than 50% in coordination of care (as documented) at patient's floor/unit and/or counseling patient: Coding Level of Care Code 89063 Subseq Hosp Care Lvl 2 Diagnoses Malignant tumor of suprahyoid epiglottis C32.1 Status post emergency tracheotomy for assistance in breathing Z93.0 Unintentional weight loss R63.4 Pulmonary nodule R91.1 DVT (deep venous thrombosis) I82.409 Emphysema/COPD J43.9 HLD (hyperlipidemia) E78.5 Smoker F17.200
[2021-06-24] MEDS: ENOXAPARIN INJ 30 MG/0.3 ML SYR SQ SCH (18:02)
[2021-06-24] MEDS ORDERED: MELATONIN 3 MG TAB PO PRN (21:21)
[2021-06-25 06:36] LABS: Basophils # (auto) 0.06 K/uL (0-0.2); Basophils % (auto) 0.8 %; Eosinophils # (auto) 0.31 K/uL (0-0.5); Eosinophils % (auto) 3.9 %; Hematocrit (blood only) 40.5 % (42-52); Hemoglobin 13.5 g/dL (14.0-18.0); Immature Granulocytes # (auto) 0.02 K/uL (0.00-0.02); Immature Granulocytes % (auto) 0.3 %; Lymphocytes # (auto) 0.96 K/uL (1.2-3.4); Lymphocytes % (auto) 12.2 %; Mean Corpuscular Hemoglobin 30.9 pg (25-34); Mean Corpuscular Hgb Conc 33.3 g/dL (32-36); Mean Corpuscular Volume 92.7 fL (80-100); Monocytes # (auto) 0.74 K/uL (0.11-0.59); Monocytes % (auto) 9.4 %; Neutrophils # (auto) 5.81 K/uL (1.4-6.5); Neutrophils % (auto) 73.4 %; Platelet Count 253 K/uL (130-400); RDW Coefficient of Variation 13.7 % (11.5-14.5); RDW Standard Deviation 46.5 fL (36.4-46.3); Red Blood Count 4.37 M/uL (4.7-6.1)
[2021-06-25 07:05] LABS: Albumin Level 2.5 gm/dl (3.4-5.0); BUN Creatinine Ratio 11.4 (10-20); Bilirubin Direct 0.1 mg/dl (0-0.2); Calcium 8.8 mg/dl (8.5-10.1); Est GFR (Non-African American) 100.9 ml/min; Potassium 3.6 mmol/L (3.5-5.1)
[2021-06-25 07:12] LABS: Bilirubin,Total 0.6 mg/dl (0.2-1); Phosphorus 3.3 mg/dl (2.5-4.9); Total Protein 6.8 gm/dl (6.4-8.2)
[2021-06-25] MEDS: ENOXAPARIN INJ 30 MG/0.3 ML SYR SQ SCH (08:33)
[2021-06-25] MEDS ORDERED: oxyCODONE HCL IR 5 MG TAB (IMMEDIATE RELEASE) PO PRN (13:30)
[2021-06-25] MEDS: MoRPHine SULFATE 2 MG/ML CARP IV PRN ×3 (13:39→22:41)
--- NOTE | 2021-06-25 17:36 | Hospitalist Progress Note ---
Date of Service June 25, 2021 Assessment & Plan (1) Malignant tumor of suprahyoid epiglottis: Plan: 65-year-old white male with a PMHx of chronic tobacco abuse hospitalized for emergent tracheostomy Referred to pulmonology for complete work-up given vocal hoarseness and unintentional weight loss first noted November 2019 CT of the chest revealed a 6 mm nodule in the right lateral trachea prompting pulmonology referral Patient had an outpatient bronchoscopy [id number] that showed a very large epiglottic tumor. Given the size and the location, airway protection was a concern Patient was admitted. Seen by Dr. Houston (ENT) and underwent tracheostomy on 06/22 with tissue biopsy Patient had an uneventful perioperative course. Remained in the ICU for close monitoring- remained hemodynamically stable transitioned from ICU to step done on 06/23 Spoke to ENT. Huge concern for malignancy. Pathology sent and pending Patient will need PET scan for screening and referral to radiation/oncology for management Moving forward, patient will need education regarding his tracheostomy (staff and respiratory therapy to provide education)--> case mgmt working on this Speech therapy consulted to assess for any dysphagia given location of mass (had FEES and MBS showing no concern for aspiration and has since been started on easy to chew diet) now that tolerating oral intake--> transition liquid roxicodone to oral oxyIR Lengthy discussion with patient regarding the long road ahead of him. First and foremost, he needs education/supplies regarding tracheostomy care. His inhalers have been transitioned to nebulized treatments over the trach Lengthy discussion with both patient and his sister. Plan is for sister to move from [place] to help with patient in this transition time but if he is discharged prior to her coming home (within the next week), she has made arrangements for him to stay with other family Patient is medically and hemodynamically stable for discharge; however, cannot be discharged until he has adequate supplies at home needed for trach support. Was told this cannot happen until Sunday (2) Status post emergency tracheotomy for assistance in breathing: Plan: See above (3) Unintentional weight loss: Plan: See above (4) Pulmonary nodule: Plan: Seen by pulmonology. 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 Especially in the likely setting of malignancy I have discussed this with Dr. Hinds who is agreeable for resumption of anticoagulation therapy. Instead of Eliquis, transitioned to plateletpheresis region (Lovenox (DVT prophylactic dosing). At this point, I do not feel it is necessary for him to be on full treatment dose but at least needs something chemically for prophylaxis. In the event patient needs follow-up surgical intervention, Lovenox has a much faster washout than the DOAC's (6) Emphysema/COPD: Plan: Patient does not appear to be on any controlling medication for this Does use Combivent Respimat as needed Holding Combivent. Utilizing DuoNeb (to be given over trach site) We will arrange for nebulizer upon discharge. Would benefit from Pulmicort/Perforomist as disease modifying/controlling medications (utilizing a mask over his trach site). We will reach out to case management regarding arrangement of this (7) HLD (hyperlipidemia): Plan: On Lipitor (8) Smoker: Plan: He still smokes and lieu of the likelihood of malignancy initially, He shruged his shoulders when asked about quitting smoking as if he is not interested but today seems to be taking this more seriously Lengthy discussion with patient regarding the importance of smoking cessation Plan: Plan is for discharge for patient to stay with his cousins temporarily until his sister comes from out of town. I spoke to the sister (Regina) on 06/24. She is a nurses aide and plans on helping with his care until he can independently manage this on his own. Admission and Anticipated Discharge Date Admission Date: June 22, 2021 Subjective Patient seen on daily rounds today. Vocalizes no complaints or concerns. In very good spirits today. Pain is adequately controlled. Still had minor soreness this morning but spilled half of his pain medication dose. Denies fevers, chills, chest pain, shortness of breath, abdominal pain, nausea or vomiting. Review of Systems Review of Systems: All systems reviewed and are unremarkable except as noted in HPI and below Denies fevers, chills, headache, nasal congestion, sore throat, cough, chest pain, shortness of breath, palpitations, orthopnea, PND, abdominal pain, nausea, vomiting, diarrhea, constipation, dysuria, hematuria, frequency, back pain, joint pain or swelling, easy bruising or bleeding, skin lesions or rashes. Physical Exam Physical Exam: General: Resting comfortably in his hospital bed. Does not appear ill or toxic NAD. HEENT: Head is AT/NC buccal mucosa is moist and pink Neck: Trach site with well seated with mucopurulent drainage that he is able to expectorate through the trach. No bloody secretions. Cardiac: RRR without M/G/R Lungs: CTA without W/R/R Abdomen: Normoactive X4. Soft and nontender in all quadrants. Extremities: No peripheral clubbing cyanosis or edema Neuro: A&O X4 cranial nerves II through XII are grossly intact no focal neuro deficits Skin: No obvious skin lesions or rashes Psych: Appropriate affect pleasant and cooperative Results & Data Results & Data ([facility]) Vital Signs (Past 12 Hours) Vital Signs Temp Pulse Resp BP Pulse Ox 06/25/21 15:40 36.9 C 78 16 112/73 96 06/25/21 08:27 38 C H 84 16 128/78 94 PG Care Time/CCT Total # of Minutes Spent Total Time Spent with Patient: Total time spent is greater than 50% in coordination of care (as documented) at patient's floor/unit and/or counseling patient: Coding Level of Care Code 61450 Subseq Hosp Care Lvl 1 Diagnoses Malignant tumor of suprahyoid epiglottis C32.1 Status post emergency tracheotomy for assistance in breathing Z93.0 Unintentional weight loss R63.4 Pulmonary nodule R91.1 DVT (deep venous thrombosis) I82.409 Emphysema/COPD J43.9 HLD (hyperlipidemia) E78.5 Smoker F17.200
[2021-06-26] MEDS: ENOXAPARIN INJ 30 MG/0.3 ML SYR SQ SCH (09:55)
[2021-06-26] MEDS: MoRPHine SULFATE 2 MG/ML CARP IV PRN ×3 (11:17→22:01)
--- NOTE | 2021-06-26 12:54 | Hospitalist Progress Note ---
Date of Service June 26, 2021 Assessment & Plan (1) Malignant tumor of suprahyoid epiglottis: Plan: 65-year-old white male with a PMHx of chronic tobacco abuse hospitalized for emergent tracheostomy Referred to pulmonology for complete work-up given vocal hoarseness and unintentional weight loss first noted November 2019 CT of the chest revealed a 6 mm nodule in the right lateral trachea prompting pulmonology referral Patient had an outpatient bronchoscopy [id number] that showed a very large epiglottic tumor. Given the size and the location, airway protection was a concern Patient was admitted. Seen by Dr. Houston (ENT) and underwent tracheostomy on 06/22 with tissue biopsy Patient had an uneventful perioperative course. Remained in the ICU for close monitoring- hemodynamically stable transitioned from ICU to step down on 06/23 Spoke to ENT. Huge concern for malignancy. Pathology confirms SCCA involving vocal cords, epiglottis, base of the tongue, and arytenoid Patient will need PET scan for screening and referral to radiation/oncology for management Moving forward, patient will need education regarding his tracheostomy (staff and respiratory therapy to provide education)--> case mgmt working on this Speech therapy consulted to assess for any dysphagia given location of mass (had FEES and MBS showing no concern for aspiration and has since been started on easy to chew diet) now that tolerating oral intake--> transitioned liquid roxicodone to oral oxyIR. Pain controlled Lengthy discussion with patient regarding the long road ahead of him. First and foremost, he needs education/supplies regarding tracheostomy care. His inhalers have been transitioned to nebulized treatments over the trach Lengthy discussion with both patient and his sister. Plan is for sister to move from [place] to help with patient in this transition time but if he is discharged prior to her coming home (within the next week), she has made arrangements for him to stay with other family Patient is medically and hemodynamically stable for discharge; however, cannot be discharged until he has adequate supplies at home needed for trach support. Was told this cannot happen until Sunday Will need ENT follow-up after being seen by oncology to determine if laryngectomy necessary (2) Status post emergency tracheotomy for assistance in breathing: Plan: See above (3) Unintentional weight loss: Plan: See above (4) Pulmonary nodule: Plan: Seen by pulmonology. Recommending 12-month follow-up CT scan for surveillance (5) DVT (deep venous thrombosis): Plan: Unprovoked DVT in November (likely in the setting of Cancer) Patient has been on Eliquis Has completed at least 6 months but given unprovoked course, lifelong anti coagulation therapy is recommended Uncertain if patient will require further surgical intervention (such as laryngectomy) At any rate, I am concerned that he may develop subsequent DVT or worse PE. Especially in the likely setting of malignancy I have discussed this with Dr. Hinds who is agreeable for resumption of anticoagulation therapy. Instead of Eliquis, transitioned to Lovenox (DVT prophylactic dosing). At this point, I do not feel it is necessary for him to be on full treatment dose but at least needs something chemically for prophylaxis. In the event patient needs follow-up surgical intervention, Lovenox has a much faster washout than the DOAC's (6) Emphysema/COPD: Plan: Patient does not appear to be on any controlling medication for this Does use Combivent Respimat as needed Holding Combivent. Utilizing DuoNeb (to be given over trach site) We will arrange for nebulizer upon discharge. Would benefit from Pulmicort/Perforomist as disease modifying/controlling medications (utilizing a mask over his trach site). CM to help with this upon D/C (7) HLD (hyperlipidemia): Plan: On Lipitor (8) Smoker: Plan: was still smoking prior to this hospitalization initially, He shrugged his shoulders when discussed smoking cessation but as thing have unfolded, he seems to understand the severity Lengthy discussion with patient regarding the importance of smoking cessation Plan: patient lives alone. Awaiting for home supplies to be arranged. Plan is for patient to stay with his cousins temporarily until his sister comes from out of town. I spoke to the sister (Regina) on 06/24. She is a nurses aide and plans on helping with his care until he can independently manage this on his own. Admission and Anticipated Discharge Date Admission Date: June 22, 2021 Subjective Patient seen on daily rounds today. In good spirits. Denies fevers, chills, chest pain, shortness of breath, abdominal pain, nausea or vomiting. Nursing voices no complaints or concerns. Review of Systems Review of Systems: All systems reviewed and are unremarkable except as noted in HPI and below Denies fevers, chills, headache, nasal congestion, sore throat, cough, chest pain, shortness of breath, palpitations, orthopnea, PND, abdominal pain, nausea, vomiting, diarrhea, constipation, dysuria, hematuria, frequency, back pain, joint pain or swelling, easy bruising or bleeding, skin lesions or rashes. Physical Exam Physical Exam: General: Resting comfortably in his bedside chair. NAD. HEENT: Head is AT/NC buccal mucosa is moist and pink Neck: trach site well-seated. Site clean. Occasional mucus from trach site but patient has since learned how to cough and expectorate this from the trach. Cardiac: RRR without M/G/R Lungs: Breathing comfortably on supplemental oxygen. No accessory muscle use or labored breathing. CTA without W/R/R Abdomen: Normoactive X4. Soft and nontender in all quadrants. Extremities: No peripheral clubbing cyanosis or edema Neuro: A&O X4 cranial nerves II through XII are grossly intact no focal neuro deficits Skin: No obvious skin lesions or rashes Psych: Appropriate affect pleasant and cooperative Results & Data Results & Data ([facility]) Vital Signs (Past 12 Hours) Vital Signs Temp Pulse Resp BP Pulse Ox 06/26/21 08:01 36.8 C 77 16 101/67 94 Laboratory Results FINAL DIAGNOSIS A. Vocal cord, left true, biopsy: - Moderate squamous dysplasia. B. Vocal cord, right true, biopsy: - Negative for carcinoma and dysplasia. - Respiratory-type mucosa with subepithelial reactive cellular changes. C. 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 D. Vocal cord, right false, biopsy: - Atypical squamous proliferation representing at least high-grade dysplasia. E. Epiglottis, biopsy: - Atypical squamous proliferation representing at least high-grade dysplasia. F. Tongue, right base, biopsy: - Well differentiated keratinizing squamous cell carcinoma. G. Tongue, left base, biopsy: - Well differentiated keratinizing squamous cell carcinoma. H. Arytenoid, right, biopsy: - Moderately differentiated keratinizing squamous cell carcinoma. I. Arytenoid, left, biopsy: - Well differentiated keratinizing squamous cell carcinoma. 06/25/21 05:57 06/25/21 05:57 PG Care Time/CCT Total # of Minutes Spent Total Time Spent with Patient: Total time spent is greater than 50% in coordination of care (as documented) at patient's floor/unit and/or counseling patient: Coding Level of Care Code 99262 Subseq Hosp Care Lvl 2 Diagnoses Malignant tumor of suprahyoid epiglottis C32.1 Status post emergency tracheotomy for assistance in breathing Z93.0 Unintentional weight loss R63.4 Pulmonary nodule R91.1 DVT (deep venous thrombosis) I82.409 Emphysema/COPD J43.9 HLD (hyperlipidemia) E78.5 Smoker F17.200
[2021-06-27] MEDS: MoRPHine SULFATE 2 MG/ML CARP IV PRN ×3 (07:51→22:58)
[2021-06-27] MEDS: ENOXAPARIN INJ 30 MG/0.3 ML SYR SQ SCH (10:16)
--- NOTE | 2021-06-27 17:23 | Hospitalist Progress Note ---
Date of Service June 27, 2021 Assessment & Plan (1) Malignant tumor of suprahyoid epiglottis: Plan: 65-year-old white male with a PMHx of chronic tobacco abuse hospitalized for emergent tracheostomy Referred to pulmonology for complete work-up given vocal hoarseness and unintentional weight loss first noted November 2019 CT of the chest revealed a 6 mm nodule in the right lateral trachea prompting pulmonology referral Patient had an outpatient bronchoscopy [id number] that showed a very large epiglottic tumor. Given the size and the location, airway protection was a concern Patient was admitted. Seen by Dr. Houston (ENT) and underwent tracheostomy on 06/22 with tissue biopsy Patient had an uneventful perioperative course. Remained in the ICU for close monitoring- hemodynamically stable transitioned from ICU to step down on 06/23 Spoke to ENT. Huge concern for malignancy. Pathology confirms SCCA involving vocal cords, epiglottis, base of the tongue, and arytenoid Patient will need PET scan for screening and referral to radiation/oncology for management Moving forward, patient will need education regarding his tracheostomy (staff and respiratory therapy to provide education)--> case mgmt working on this Speech therapy consulted to assess for any dysphagia given location of mass (had FEES and MBS showing no concern for aspiration and has since been started on easy to chew diet) now that tolerating oral intake--> transitioned liquid roxicodone to oral oxyIR. Pain controlled Lengthy discussion with patient regarding the long road ahead of him. First and foremost, he needs education/supplies regarding tracheostomy care. His inhalers have been transitioned to nebulized treatments over the trach Lengthy discussion with both patient and his sister. Plan is for sister to move from [place] to help with patient in this transition time but if he is discharged prior to her coming home (within the next week), she has made arrangements for him to stay with other family Patient is medically and hemodynamically stable for discharge; however, cannot be discharged until he has adequate supplies at home needed for trach support. Half of supplies to be delivered today (06/27) and rest will be delivered tomorrow (06/28). RT also available tomorrow to assist him at home. Will need ENT follow-up after being seen by oncology to determine if laryngectomy necessary (2) Status post emergency tracheotomy for assistance in breathing: Plan: See above (3) Unintentional weight loss: Plan: See above (4) Pulmonary nodule: Plan: Seen by pulmonology. Recommending 12-month follow-up CT scan for surveillance (5) DVT (deep venous thrombosis): Plan: Unprovoked DVT in November (likely in the setting of Cancer) Patient has been on Eliquis Has completed at least 6 months but given unprovoked course, lifelong anticoagulation therapy is recommended Uncertain if patient will require further surgical intervention (such as laryngectomy) At any rate, I am concerned that he may develop subsequent DVT or worse PE. Especially in the likely setting of malignancy I have discussed this with Dr. Hinds who is agreeable for resumption of anticoagulation therapy. Instead of Eliquis, transitioned to Lovenox (DVT prophylactic dosing). At this point, I do not feel it is necessary for him to be on full treatment dose but at least needs something chemically for prophylaxis. In the event patient needs follow-up surgical intervention, Lovenox has a much faster washout than the DOACs (6) Emphysema/COPD: Plan: Patient does not appear to be on any controlling medication for this Does use Combivent Respimat as needed Holding Combivent. Utilizing DuoNeb (to be given over trach site) We will arrange for nebulizer upon discharge. Would benefit from Pulmicort/Perforomist as disease modifying/controlling medications (utilizing a mask over his trach site). CM to help with this upon D/C (7) HLD (hyperlipidemia): Plan: On Lipitor (8) Smoker: Plan: was still smoking prior to this hospitalization initially, He shrugged his shoulders when discussed smoking cessation but as things have unfolded, he seems to understand the severity Lengthy discussion with patient regarding the importance of smoking cessation Plan: patient lives alone. Awaiting for home supplies to be arranged. Plan is for patient to stay with his cousins temporarily until his sister comes from out of town. I spoke to the sister (Regina) on 06/24. She is a nurses aide and plans on helping with his care until he can independently manage this on his own. supplies to be delivered in entirety tomorrow and RT available at that time. Will arrange for d/c home tomorrow. Referral to oncology (Dr. Candelario Gray) as he does XRT. I have personally reached out to Dr. Houston, he is to see the patient prior to d/c and answer any questions that he may have specifically for him. I did explain the patient that his tumor is malignant and will require further follow up with oncology upon discharge. Admission and Anticipated Discharge Date Admission Date: June 22, 2021 Subjective Patient seen on daily rounds today. Pt hospitalized for tracheal mass found on bronchoscopy due to need for urgent tracheostomy. He underwent trach procedure on 06/[address] Houston. Today he denies fevers, chills, chest pain, shortness of breath, abdominal pain, nausea or vomiting. He admits to some burning of his skin at procedure site. Has several questions regarding results of his biopsy, prognosis, if trach will be permanent, and when/if he will ever be able to speak again. He has not yet been seen post op by Dr. Houston. Unclear as to plan moving forward is and has more questions regarding that. Review of Systems Review of Systems: CONSTITUTIONAL: Denies weight loss/gain, fever and chills, fatigue, malaise, generalized weakness. HEENT: Denies changes in vision and hearing. RESPIRATORY: Denies SOB, cough, wheezing. CV: Denies palpitations, CP, lower extremity edema, orthopnea, PND. GI: Denies abdominal pain, nausea, vomiting and diarrhea. : Denies dysuria and urinary frequency, urgency, hesitancy. MUSCULOSKELETAL: Denies myalgia and joint pain. SKIN: Burning at trach site. Denies rash and pruritus. NEUROLOGICAL: Denies headache, syncope, focal weakness, numbness, tingling. PSYCHIATRIC: Denies recent changes in mood. Denies anxiety and depression. Physical Exam Physical Exam: GENERAL: 65 yo Well-developed, well-nourished WM. NAD. HENT: Moist mucous membranes. Trach site well-seated and clean. Occasional mucus produced. LUNGS: Clear to auscultation bilaterally. No accessory muscle use. No W/R/R. CARDIOVASCULAR: Regular rate and rhythm. No M/G/R. No JVD. ABDOMEN: Soft, non-tender and non-distended. No palpable masses. Bowel sounds normoactive x 4 quad. EXTREMITIES: No edema. Non-tender. Peripheral pulses +2/4. PSYCHIATRIC: Cooperative. Appropriate mood and affect. SKIN: Warm, dry, intact. No rashes or lesions. Results & Data Results & Data ([facility]) Vital Signs (Past 12 Hours) Vital Signs Temp Pulse Resp BP Pulse Ox 06/27/21 14:56 37 C 85 16 98/64 L 99 06/27/21 07:36 36.8 C 78 12 102/67 97 Laboratory Results No lab data PG Care Time/CCT Total # of Minutes Spent Total Time Spent with Patient: Total time spent is greater than 50% in coordination of care (as documented) at patient's floor/unit and/or counseling patient: Coding Level of Care Code 17915 Subseq Hosp Care Lvl 2 Diagnoses Malignant tumor of suprahyoid epiglottis C32.1 Status post emergency tracheotomy for assistance in breathing Z93.0 Unintentional weight loss R63.4 Pulmonary nodule R91.1 DVT (deep venous thrombosis) I82.409 Emphysema/COPD J43.9 HLD (hyperlipidemia) E78.5 Smoker F17.200
--- NOTE | 2021-06-28 07:57 | Ears,Nose,Throat Progress Note ---
Date of Service June 28, 2021 Assessment & Plan (1) Squamous cell carcinoma of epiglottis: Plan: The tumor basically a through the epiglottis into the base of tongue. Extensive tumor will require total laryngectomy and at least partial glossectomy if not total glossectomy. I did discuss surgical option with transoral robotic surgery with the patient. He prefers to go the organ preservation route with chemo induction and radiation. Admission and Anticipated Discharge Date Admission Date: June 22, 2021 Subjective No complaints. Questions about his cancer. Physical Exam Constitutional: WD/WN, vitals as above Eyes: PERRL, conjunctivae normal, anicteric sclerae ENMT: external ear and nose normal, oropharynx normal Neck: Trach in position, healing well Results & Data ([facility]) Vital Signs (Past 12 Hours) Vital Signs Temp Pulse Resp BP Pulse Ox 06/27/21 23:04 37.3 C 83 16 103/69 94 Laboratory Results Pathology showed supraglottic tumor with invasion into the tongue base
[2021-06-28] MEDS: ENOXAPARIN INJ 30 MG/0.3 ML SYR SQ SCH (08:26)
[2021-06-28] MEDS: MoRPHine SULFATE 2 MG/ML CARP IV PRN (08:27)
--- NOTE | 2021-06-28 15:51 | Discharge Summary ---
Date of Service June 28, 2021 Admission HPI Per Admitting Provider This 65-year-old male who underwent a bronchoscopy today by the pulmonary service. The patient was found to have a tracheal mass. Due to location of the patient's trachea masses felt the patient will warrant an urgent tracheostomy and subsequent admission to the hospital and we are asked to participate in his care for this reason. I visited with the patient following his bronchoscopy. The patient notes that b ack in November 2020 he developed hoarseness. In addition the patient developed a DVT. Patient has been placed on blood thinners and he has undergone a series of the diagnostic evaluations secondary to his hoarseness. With his current presentation the patient says that he does not note any worsening shortness of breath even with activity. He notes that he has been able to maintain his usual level of activity performing various tasks around his house and yard work. He denies any chest pain. He denies any fevers, shakes, chills. He denies any known exposures to any chemicals, pesticides, or asbestos. Patient does report an extensive history of smoking having smoked for in excess of 30 years up to 1.5 to 2 pack cigarettes per day. He is a current smoker. Patient says that he consumes approximately 1 alcoholic beverage per day but is not a heavy drinker and has not been a heavy drinker in the past. In addition the patient does report losing between 50 and 60 pounds unintentionally over the past year. He denies any dysphagia. He denies any decreased appetite. Since the patient's hoarseness began he has seen his family physician. He has been anticoagulated secondary to his history of DVT. Patient has undergone a colonoscopy in February of this year at which time polyps were removed. There is no available pathology from this procedure.Patient has undergone a CT scan of the chest on May 20 of this year. This showed several small pulmonary nodules not exceeding 3 mm in size. Patient was noted to have some right lobe thyroid enlargement. There were questionable 6 mm nodules along the right lateral wall of the trachea. It is a CT scan that prompted pulmonary evaluation. Was initially felt that the thyroid lesions in question represented mucus which would be better evaluated by bronchoscopy which he underwent today. In addition to the above-noted studies the patient is also undergone a thyroid ultrasound on May 26 of this year which showed an enlarged multinodular goiter in both lobes of the thyroid. At the present time the patient says he is not short of breath. He denies any chest pain. He denies any fevers, shakes, chills. He denies any nausea or vomiting. He does report that he continues to have a hoarse voice but otherwise feels okay. At the time of my interview he was resting comfortably in bed. He was in no distress. Admission Exam Per Admitting Provider Constitutional: well developed and well nourished; no acute distress Eyes: no conjunctival abnormality ENMT: Ears: no hearing impairment and no external ear abnormality Audible hoarseness noted with phonation Neck: trachea midline Respiratory: normal respiratory effort, lungs clear to auscultation No stridor noted Cardiovascular: Rate/Rhythm: regular rate and regular rhythm Gastrointestinal (Abdomen): Soft and nontender Musculoskeletal: No calf tenderness Skin: no rashes, warm and dry Neurologic: moves all extremities Psychiatric: A+Ox3, euthymic affect Principal Diagnosis 1. Squamous Cell CA of the larynx, epiglottis, base of tongue, and arytenoid 2. s/p tracheostomy placement d/t concern for airway compromise Discharge Exam GENERAL: 65 yo Well-developed, well-nourished WM. NAD. HENT: Moist mucous membranes. Trach site well-seated and clean. Occasional mucus produced. LUNGS: Clear to auscultation bilaterally. No accessory muscle use. No W/R/R. CARDIOVASCULAR: Regular rate and rhythm. No M/G/R. No JVD. ABDOMEN: Soft, non-tender and non-distended. No palpable masses. Bowel sounds normoactive x 4 quad. EXTREMITIES: No edema. Non-tender. Peripheral pulses +2/4. PSYCHIATRIC: Cooperative. Appropriate mood and affect. SKIN: Warm, dry, intact. No rashes or lesions. Discharge Data Allergies Allergy/AdvReac Type Severity Reaction Status Date / Time No Known Drug Allergies Allergy Verified 06/14/21 08:32 Consultations ENT -- Dr. Houston, consulted for urgent tracheostomy which was performed on 06/22 Procedures Performed Operation Date: 06/22/21 09:30 Actual Procedures p Tracheostomy, Panendoscopy and Biopsy (Not Applicable) - Bouchra Houston MD Operation Date: 06/22/21 11:00 Actual Procedures p Bronchoscopy Radiology(Bilateral) - Adin Garcia MD Ordered Studies Chest X-Ray 06/22/21 13:46 XR chest 1V portable CLINICAL HISTORY: pre-op. Evaluate cardiopulmonary status COMPARISON STUDY: No previous studies for comparison. TECHNIQUE: 1 view of the chest FINDINGS: Single frontal view of the chest demonstrates the cardiomediastinal silhouette to be within normal limits. There is a decreased inspiratory effort with elevation of the hemidiaphragms and crowding of the bronchovascular markings at the lung bases and centrally. The lungs are clear of alveolar opacities. There is no evidence for pleural effusion. There is no evidence for vascular congestion. There is no acute osseous pathology. IMPRESSION: There is a decreased inspiratory effort with otherwise no acute c hest disease. ACT 112: Negative or not required by law. Electronically signed by: Shilo Delaney M.D. 06/22/2021 2:[address] PM [address] Tissue Neck [address] 06/23/21 08:32 CT soft tissue neck w con HISTORY: 65 years-old Male supraglottic mass, patient presents with a reported supraglottic mass. COMPARISON: Chest CT 05/20/2021, thyroid ultrasound 05/26/2021. TECHNIQUE: Multiple axial CT images of the soft tissues of the neck were obtained following the intravenous administration of 95 mL Optiray 320. A dose lowering technique was used consistent with the principals of ALARA. FINDINGS: The imaged intracranial structures demonstrate no acute abnormality. There is moderate mucosal thickening of the ethmoid air cells. Mild polypoid mucosal thickening of the left maxillary sinus. The mastoid air cells are clear. There is no acute facial bone fracture identified. The patient is edentulous. Multilevel degenerative changes of the cervical spine with moderate disc space narrowing at C6-C7. There is developmental incomplete bony fusion involving the posterior arch of C1. Ill-defined osseous erosions are noted involving the thyroid cartilage bilaterally. The nasopharynx and oropharynx are patent. The parapharyngeal fat planes are symmetric and well-maintained. Multinodular thyroid goiter, right greater than left. This results in mild mass effect upon the adjacent trachea. There is an infiltrative heterogeneous soft tissue attenuating mass with ill-defined margins and areas of apparent central necrosis which is noted involving the base of the tongue, lingual tonsils, vallecula, piriform sinuses, epiglottis and aryepiglottic folds and possibly extending into the false vocal folds. This lesion overall measures approximately 4.2 x 3.3 x 5.1 cm and results in marked narrowing of the supraglottic airway. The true vocal cords are likely spared, however, are suboptimally visualized. The subglottic airway is unremarkable. A tracheostomy cannula is in place with mild adjacent edema and deep tissue air. Dilation of the ascending thoracic aorta is partially imaged. 9 mm left level 2 lymph node. No pathologically enlarged lymph nodes are identified in the neck or imaged upper chest. The previously described subcentimeter nodule on the right aspect of the upper trachea is not definitively seen. No pneumothorax. Subpleural bleb formation of the right lung apex. Mild emphysema. IMPRESSION: 1. Large infiltrative heterogeneous mass of the supraglottic airway measures over 5 cm and results in marked narrowing of the airway and may partially extend into the glottis. Primary head and neck carcinoma is the differential consideration of exclusion. 2. Mild associated osseous erosion of the thyroid cartilage. 3. Tracheostomy cannula in place. 4. Thyroid goiter. 5. No pathologically enlarged lymph nodes identified. ACT 112: Negative or not required by law. The above report was generated using voice recognition software. It may contain grammatical, syntax or spelling errors. Dictated: 06/23/2021 1:35 PM Transcribed: 06/23/2021 2:29 PM Ashley [id number] [email or web address] Electronically signed by: Armando Lim M.D. 06/23/2021 2:43 PM Videofluoroscopic Swallow 06/24/21 09:30 FL video swallow CLINICAL HISTORY: Dysphagia. Evaluate for aspiration. COMPARISON STUDY: No previous studies for comparison. FLUOROSCOPY TIME: 2.1 minutes. NUMBER OF IMAGES: 9 cine fluoroscopic swallowing sequences FINDINGS: The patient was given barium of varying consistencies and observed under fluoroscopy with concurrent tape recording. Examination is performed in conjunction with a member of the speech pathology department. The patient was given the following consistencies of barium: Thin, nectar, pure, mechanical soft and solid. There was no significant laryngeal penetration or aspiration with all substances tested. There was no pooling within the vallecula. There was no pooling within the puriform sinuses. IMPRESSION: No significant laryngeal penetration or aspiration identified. Please see report from speech pathology regarding additional findings recommendations. ACT 112: Negative or not required by law. Electronically signed by: Shilo Delaney M.D. 06/24/2021 12:21 PM Hospital Course (1) Malignant tumor of suprahyoid epiglottis: 65-year-old white male with a PMHx of chronic tobacco abuse hospitalized for emergent tracheostomy Referred to pulmonology for complete work-up given vocal hoarseness and unintentional weight loss first noted November 2019 CT of the chest revealed a 6 mm nodule in the right lateral trachea prompting pulmonology referral Patient had an outpatient bronchoscopy [id number] that showed a very large epiglottic tumor. Given the size and the location, airway protection was a concern Patient was admitted. Seen by Dr. Houston (ENT) and underwent tracheostomy on 06/22 with tissue biopsy Patient had an uneventful perioperative course. Remained in the ICU for close monitoring- hemodynamically stable transitioned from ICU to step down on 06/23 Spoke to ENT. Huge concern for malignancy. Pathology confirms SCCA involving vocal cords, epiglottis, base of the tongue, and arytenoid Patient will need PET scan for screening and referral to radiation/oncology for management Moving forward, patient will need education regarding his tracheostomy (staff and respiratory therapy to provide education)--> case mgmt working on this Speech therapy consulted to assess for any dysphagia given location of mass (had FEES and MBS showing no concern for aspiration and has since been started on easy to chew diet) now that tolerating oral intake--> transitioned liquid roxicodone to oral oxyIR. Pain controlled Lengthy discussion with patient regarding the long road ahead of him. First and foremost, he needs education/supplies regarding tracheostomy care. His inhalers have been transitioned to nebulized treatments over the trach Lengthy discussion with both patient and his sister. Plan is for sister to move from [place] to help with patient in this transition time but if he is discharged prior to her coming home (within the next week), she has made arrangements for him to stay with other family Patient is medically and hemodynamically stable for discharge; however, cannot be discharged until he has adequate supplies at home needed for trach support. Patient will have all supplies delivered today and RT available to meet with patient at home to provide education on trach maintenance. ENT has seen yesterday and today, all questions that the patient had were answered. He does not wish to pursue laryngectomy at this time, would prefer to explore other options including chemo and XRT. (2) Status post emergency tracheotomy for assistance in breathing: See above (3) Unintentional weight loss: See above (4) Pulmonary nodule: Seen by pulmonology. Recommending 12-month follow-up CT scan for surveillance (5) DVT (deep venous thrombosis): Unprovoked DVT in November (likely in the setting of Cancer) Patient has been on Eliquis Has completed at least 6 months but given unprovoked course, lifelong anticoagulation therapy is recommended Uncertain if patient will require further surgical intervention (such as laryngectomy) At any rate, I am concerned that he may develop subsequent DVT or worse PE. Especially in the likely setting of malignancy I have discussed this with Dr. Houston who is agreeable for resumption of anticoagulation therapy. Resume Eliquis 5mg BID upon discharge. If further surgical intervention is necessary, the DOAC can be stopped 48 hours prior to surgery. (6) Emphysema/COPD: Patient does not appear to be on any controlling medication for this Does use Combivent Respimat as needed Holding Combivent. Utilizing DuoNeb (to be given over trach site) We will arrange for nebulizer upon discharge. Would benefit from Pulmicort/Perforomist as disease modifying/controlling medications (utilizing a mask over his trach site). CM to help with this upon D/C (7) HLD (hyperlipidemia): On Lipitor (8) Smoker: was still smoking prior to this hospitalization initially, He shrugged his shoulders when discussed smoking cessation but as things have unfolded, he seems to understand the severity Lengthy discussion with patient regarding the importance of smoking cessation patient lives alone. Awaiting for home supplies to be arranged. Plan is for patient to stay with his cousins temporarily until his sister comes from out of town. I spoke to the sister (Regina) on 06/24. She is a nurses aide and plans on helping with his care until he can independently manage this on his own. supplies to be delivered in entirety tomorrow and RT available at that time. Will arrange for d/c home tomorrow. Referral to oncology (Dr. Candelario Gray) as he does XRT. I did explain the patient that his tumor is malignant and will require further follow up with oncology upon discharge. Have attempted to arrange this for the patient prior to discharge but have had some difficulties. Will reach out to nurse navigator who returns tomorrow to see if she can assist with this. Total Time Total Time Spent Total Time Spent (In Minutes): >30 minutes Discharge Plan Discharge Items Patient Disposition: Home - Home Health Services Reason For Visit: ENDOBRONCHIAL MASS Discharge Diagnosis: Cancer of neck (including voice box and base of tongue) Activity: Resume your previous activity Non-emergency contact: Primary Care Provider and Oncologist Call non-emergency contact if: you have any medication questions, your symptoms worsen, your pain is not controlled, your pain is worsening, your pain is unusual for you, your pain is concerning for you, you have a fever, your rectal temperature is above 100.4, your temperature is above 101, your temperature is above 101.5, your wound has increased redness, your wound has increased drainage and your wound pain has increased Follow-up/Referrals: Blanca Pabon DO [Primary Care Provider] - 07/04/21 1:20 pm Estee Palomino MD [Physician] - (schedule f/u within 1 week Office will call patient with a f/u visit per Logan (office)) Diet: Regular Diet Texture: Easy to Chew Addtl Attending Provider Instructions: 1. Take all medications as directed. 2. Respiratory therapy to follow up with you at home. 3. Supplies will be delivered today for your tracheostomy site. 4. Call your surgeon with any questions/concerns regarding your tracheostomy. 5. Will arrange for follow up/referral to radiation oncologist at [facility]. 6. Advise follow up with your family doctor within 1 week of discharge. 7. Strongly recommend tobacco cessation. Pending Studies at Discharge: No Stand-Alone Forms: My [facility], Smoking Cessation Medications and DC Order Prescriptions: New ipratropium bromide 0.02 % Solution 0.5 mg inhalation Q4H PRN (Reason: shortness of breath or wheezing) Qty: 1 RF: 0 Continued Eliquis 5 mg tablet 5 mg PO BID Qty: 180 RF: 1 atorvastatin [Lipitor] 20 mg tablet 20 mg PO QPM Qty: 90 RF: 1 hydrocortisone 2.5 % cream with perineal applicator 1 applic NH DAILY PRN (Reason: hemorrhoids) Qty: 30 RF: 0 Discontinued Combivent Respimat 20-100 mcg/actuation mist 1 puff inhalation Q4H PRN (Reason: sob, cough, wheezing) Qty: 4 RF: 2 Discharge Orders: Discharge Order (Routine); Ordered 06/28/21 Ordered By: Eve Day/Other Patient Handouts: Tracheostomy Tube QA, Cleaning Your Tracheostomy, Tracheostomy Care Admission Data Admit Date/Time: 06/22/21 13:06 Attending Provider: Florentino Menjivar Admit Provider: Negro Zurita Primary Care Provider: Blanca Pabon Other Providers: Ralph,Specialty Leslie Other Interventions: Discharge Summary Assessment (RN) Last Done: 06/28/21 15:36 Coding Level of Care Code D/C DAY MANAGEMENT >30 MINS Diagnoses Malignant tumor of suprahyoid epiglottis C32.1 Status post emergency tracheotomy for assistance in breathing Z93.0 Unintentional weight loss R63.4 Pulmonary nodule R91.1 DVT (deep venous thrombosis) I82.409 Emphysema/COPD J43.9 HLD (hyperlipidemia) E78.5 Smoker F17.200 Home Health Attestation I certify that this patient is under my care and that I, or a physicians residential real estate assistant working with me, had a face to-face encounter that meets the home health [id number] encounter requirements with this patient. The encounter with the patient was in whole, or in part, for the following medical condition, which is the primary reason for home health care (list medical condition): Endobronchial Mass I certify that, based on my findings, the following services are medically necessary home health services: My clinical findings support the need for the above services because: Skilled Nsg Assessment Skilled Nsg Assess Pt Illness, Disease and Sx Monitoring Skilled Nsg to Assess, Perform and Teach Wound Care Further, I certify that my clinical findings support that this patient is homebound (i.e. absences from home require considerable and taxing effort and are for medical reasons or holiness services or infrequently or of short duration when for other reasons) because: Poor Endurance; SOB Minimal Exertion Certification for Home Health Services: Based on the above findings, I certify that this patient is confined to the home and needs intermittent chcf care, physical therapy and/or speech therapy or continues to need occupational therapy. The patient is under my care, and I have initiated the establishment of the plan of care. This patient will be followed by a physician who will periodically review the plan of care.
== END 2021-06-28 16:46 | disposition home health service (06) | DRG 13 ==
LOC: CC 10:49 → SUATTDRO 13:06 → 1E 13:06 → 3E 06-23 12:27
PROC: M.TRACH (2021-06-22 09:30)
DX: Z83.3 Family history of diabetes mellitus; K58.9 Irritable bowel syndrome, unspecified; R91.8 Other nonspecific abnormal finding of lung field; F17.210 Nicotine dependence, cigarettes, uncomplicated; Z86.718 Personal history of other venous thrombosis and embolism; E78.5 Hyperlipidemia, unspecified; C32.8 Malignant neoplasm of overlapping sites of larynx; E04.2 Nontoxic multinodular goiter; R63.4 Abnormal weight loss; J43.9 Emphysema, unspecified